=== PATIENT | male | born 1940 | race Caucasian/White ===

== ENCOUNTER 2017-07-14 13:07 | Emergency (ER) | payer MEDICARE ==
[~2017-07-14] VITALS: Ht 172.7 cm; Wt 100.0 kg
[~2017-07-14 13:07] MED LIST: ADLT ASA LOW81 MG PO; ADVAIR DISKU IN; ASA LO-DOSE81 MG OR; CARDURA4 MG PO; CRESTOR40 MG OR; DIOVAN40 MG OR; LASIX20 MG OR; LISINOPRIL10 MG PO; NORVASC2.5 MG PO; PREDNISONE20 MG PO; SYMBICORT1 AE1 IN; ZOCOR20 M1 PO; ZOCOR20 MG OR
[2017-07-14 13:52] LABS: HEMOGLOBIN 12.9 g/dl (14.0-18.0); IMMATURE GRANULOCYTES 0.3 % (0.0-1.0); MEAN CELL VOLUME 96.5 fL CALC (80.0-100.0); MEAN CORPUSCULAR HGB 31.9 pG CALC (26.0-32.0); MEAN CORPUSCULAR HGB CONC 33.1 g/L CALC (32.0-36.0); NEUT# 3.27 thou/uL (1.82-7.42); RED BLOOD COUNT 4.04 mill/uL (4.70-6.10); RED CELL DISTRI WIDTH 12.7 % (11.5-15.5)
[2017-07-14 14:15] LABS: ALBUMIN 4.6 g/dL (3.2-5.0); ALKALINE PHOSPHATASE 114 u/l (38-126); ANION GAP 18 (6-22 (CALC)); BILIRUBIN, TOTAL 0.4 mg/dL (0.0-1.4); BUN 18 mg/dL (8-23); BUN/CREATININE RATIO 18 (12-20 (CALC)); CARBON DIOXIDE 27 mmol/l (22-30); CHLORIDE 101 mmol/l (95-108); GFR > 60 ML/MIN (>=60 (CALC)); GFR FOR AFR.AMER. > 60 ML/MIN (>=60 (CALC)); GLUCOSE 112 mg/dL (82-115); POTASSIUM 4.6 mmol/l (3.5-5.1); SGOT/AST 24 u/l (19-48); SGPT/ALT 28 u/l (11-66); SODIUM 141 mmol/l (137-146); TOTAL PROTEIN 7.8 g/dL (6.3-8.2)
[2017-07-14 14:23] LABS: MYOGLOBIN 110 ng/mL (0 - 121)
[2017-07-14] MEDS ORDERED: CEPHALEXIN500 MG PO (14:40)
[2017-07-14] MEDS ORDERED: MEDDOSEPAK PO (14:40)
[2017-07-14 15:21] VITALS: BP 134/64
== END 2017-07-14 15:30 | disposition home or self-care (01) ==
LOC: ED 13:07
PROVIDERS: Emergency Medicine
DX: J44.1 Chronic obstructive pulmonary disease with (acute) exacerbation (principal); R50.9 Fever, unspecified; R06.02 Shortness of breath; R05 Cough; I10 Essential (primary) hypertension

== ENCOUNTER 2018-11-30 17:04 | Inpatient (IN) | payer MEDICARE ==
[2018-11-30] VITALS (8 sets, daily range): BP systolic 100–131; BP diastolic 62–79
[~2018-11-30] VITALS: Ht 172.7 cm; Wt 84.1 kg
[~2018-11-30 17:04] MED LIST changes: +CEPHALEXIN500 MG PO; +MEDDOSEPAK PO
[2018-11-30 17:50] LABS: HEMATOCRIT 38.3 % (39.0-50.0); HEMOGLOBIN 12.3 g/dl (14.0-18.0); IMMATURE GRANULOCYTES 0.5 % (0.0-5.0); MEAN CORPUSCULAR HGB 31.1 pG CALC (26.0-32.0); MEAN CORPUSCULAR HGB CONC 32.1 g/L CALC (32.0-36.0); NEUT# 4.48 thou/uL (1.82-7.42); RED BLOOD COUNT 3.95 mill/uL (4.70-6.10); RED CELL DISTRI WIDTH 13.2 % (11.5-15.5)
[2018-11-30 18:08] LABS: ALBUMIN 4.5 g/dL (3.2-5.0); ALKALINE PHOSPHATASE 170 u/l (38-126); BILIRUBIN, TOTAL 0.4 mg/dL (0.0-1.4); BUN 19 mg/dL (8-23); BUN/CREATININE RATIO 23 (12-20 (CALC)); CARBON DIOXIDE 28 mmol/l (22-30); CHLORIDE 101 mmol/l (95-108); CREATININE 0.8 mg/dL (0.7-1.3); GFR > 60 ML/MIN (>=60 (CALC)); GFR FOR AFR.AMER. > 60 ML/MIN (>=60 (CALC)); SGOT/AST 26 u/l (19-48); SODIUM 140 mmol/l (137-146)
[2018-11-30 18:12] LABS: ANION GAP 16 (6-22 (CALC)); POTASSIUM 5.4 mmol/l (3.5-5.1)
[2018-11-30 18:20] LABS: MYOGLOBIN 60 ng/mL (0 - 121)
[2018-11-30] MEDS ORDERED: ASPIRIN 8181 MG PO (18:28)
[2018-11-30] MEDS ORDERED: ZYLOPRIM100 MG PO (18:28)
[2018-11-30] MEDS ORDERED: ELIQUIS5 MG PO (18:29)
[2018-11-30] MEDS ORDERED: FUROSEMIDE20 MG PO (18:30)
[2018-11-30] MEDS ORDERED: IPRATROPIU0.5 MG/3 M IN (18:30)
[2018-11-30] MEDS ORDERED: MEVACOR40 MG PO (18:31)
[2018-11-30] MEDS ORDERED: METOPROL TAR25 MG PO (18:32)
[2018-11-30 22:44] LABS: URINE BILIRUBIN - DIPSTICK NEGATIVE (NEGATIVE); URINE BLOOD DIPSTICK MODERATE (NEGATIVE); URINE COLOR YELLOW; URINE GLUCOSE - DIPSTICK NEGATIVE (NEGATIVE); URINE KETONE NEGATIVE (NEGATIVE); URINE PROTEIN - DIPSTICK NEGATIVE (NEG-TRACE); URINE SPECIFIC GRAVITY 1.015; URINE UROBILINOGEN - DIPSTICK 0.2 E.U./dL (0.2)
[2018-11-30 22:48] LABS: URINE LEUK ESTERASE SMALL (NEGATIVE); URINE NITRITE - DIPSTICK POSITIVE (Negative)
[2018-11-30 23:19] LABS: URINE WBC 20-50 WBC/hpf (0-5)
[2018-11-30 23:20] LABS: URINE BACTERIA MANY hpf
[2018-12-01] VITALS (38 sets, daily range): BP systolic 95–144; BP diastolic 60–92
[2018-12-01 05:03] LABS: HEMATOCRIT 35.8 % (39.0-50.0); HEMOGLOBIN 11.5 g/dl (14.0-18.0); IMMATURE GRANULOCYTES 0.3 % (0.0-5.0); MEAN CELL VOLUME 96.8 fL CALC (80.0-100.0); MEAN CORPUSCULAR HGB 31.1 pG CALC (26.0-32.0); MEAN CORPUSCULAR HGB CONC 32.1 g/L CALC (32.0-36.0); NEUT# 3.69 thou/uL (1.82-7.42); RED BLOOD COUNT 3.7 mill/uL (4.70-6.10); RED CELL DISTRI WIDTH 13.2 % (11.5-15.5)
[2018-12-01 05:14] LABS: ALBUMIN 3.7 g/dL (3.2-5.0); ALKALINE PHOSPHATASE 149 u/l (38-126); BILIRUBIN, TOTAL 0.5 mg/dL (0.0-1.4); BUN 17 mg/dL (8-23); BUN/CREATININE RATIO 20 (12-20 (CALC)); CARBON DIOXIDE 31 mmol/l (22-30); CHLORIDE 104 mmol/l (95-108); CREATININE 0.8 mg/dL (0.7-1.3); GFR > 60 ML/MIN (>=60 (CALC)); GFR FOR AFR.AMER. > 60 ML/MIN (>=60 (CALC)); MAGNESIUM 1.9 mg/dL (1.6-2.3); SGOT/AST 21 u/l (19-48); SODIUM 141 mmol/l (137-146); TOTAL PROTEIN 6.7 g/dL (6.3-8.2)
[2018-12-01 05:17] LABS: ANION GAP 10 (6-22 (CALC)); POTASSIUM 4.3 mmol/l (3.5-5.1)
[2018-12-02] VITALS (18 sets, daily range): BP systolic 94–141; BP diastolic 64–96
[2018-12-02 05:17] LABS: HEMOGLOBIN 12.5 g/dl (14.0-18.0); IMMATURE GRANULOCYTES 0.3 % (0.0-5.0); MEAN CELL VOLUME 96.3 fL CALC (80.0-100.0); MEAN CORPUSCULAR HGB 30.9 pG CALC (26.0-32.0); MEAN CORPUSCULAR HGB CONC 32.1 g/L CALC (32.0-36.0); NEUT# 4.14 thou/uL (1.82-7.42); RED BLOOD COUNT 4.05 mill/uL (4.70-6.10); RED CELL DISTRI WIDTH 13.2 % (11.5-15.5)
[2018-12-02 05:30] LABS: ALBUMIN 4.2 g/dL (3.2-5.0); ALKALINE PHOSPHATASE 159 u/l (38-126); ANION GAP 15 (6-22 (CALC)); BILIRUBIN, TOTAL 0.6 mg/dL (0.0-1.4); BUN 17 mg/dL (8-23); BUN/CREATININE RATIO 19 (12-20 (CALC)); CARBON DIOXIDE 29 mmol/l (22-30); CHLORIDE 101 mmol/l (95-108); CREATININE 0.9 mg/dL (0.7-1.3); GFR > 60 ML/MIN (>=60 (CALC)); GFR FOR AFR.AMER. > 60 ML/MIN (>=60 (CALC)); MAGNESIUM 1.9 mg/dL (1.6-2.3); POTASSIUM 4.7 mmol/l (3.5-5.1); SGOT/AST 23 u/l (19-48); SODIUM 141 mmol/l (137-146); TOTAL PROTEIN 7.4 g/dL (6.3-8.2)
[2018-12-02 05:31] LABS: CHOLESTEROL HDL RATIO 2.7 (<4.4 (CALC))
[2018-12-03] VITALS (17 sets, daily range): BP systolic 95–133; BP diastolic 62–81
[2018-12-04 00:25] VITALS: BP 135/69
[2018-12-04 04:00] VITALS: BP 135/84
[2018-12-04 08:10] VITALS: BP 139/90
[2018-12-04 10:57] VITALS: BP 111/47
[2018-12-04] MEDS ORDERED: CEPHALEXIN500 MG PO (11:25)
[2018-12-04] MEDS ORDERED: LANOXIN PED0.1 MG/ML PO (11:28)
== END 2018-12-04 12:44 | disposition home or self-care (01) | DRG 309 ==
LOC: ED 17:04 → ED-I 18:45 → ED 18:52 → ICU 18:53 → MS2 12-03 12:34
PROVIDERS: Family Medicine; ADMIT Internal Medicine Nephrology; ATTEND Internal Medicine
DX: I48.91 Unspecified atrial fibrillation (principal); N39.0 Urinary tract infection, site not specified; I10 Essential (primary) hypertension; J44.9 Chronic obstructive pulmonary disease, unspecified; E78.5 Hyperlipidemia, unspecified; H91.90 Unspecified hearing loss, unspecified ear; K59.00 Constipation, unspecified; G47.00 Insomnia, unspecified; B96.20 Unspecified Escherichia coli [E. coli] as the cause of diseases classified elsewhere
CPT/HCPCS: J1160

== ENCOUNTER 2019-11-10 19:34 | Emergency (ER) | payer MEDICARE ==
[~2019-11-10 19:34] MED LIST changes: +ASPIRIN 8181 MG PO; +ELIQUIS5 MG PO; +FUROSEMIDE20 MG PO; +IPRATROPIU0.5 MG/3 M IN; +LANOXIN PED0.1 MG/ML PO; +METOPROL TAR25 MG PO; +MEVACOR40 MG PO; +ZYLOPRIM100 MG PO
[2019-11-10 19:40] VITALS: BP 127/80
[2019-11-10] MEDS ORDERED: ADVAIR DISK1 IN (20:01)
[2020-03-12] MEDS ORDERED: LYRICA100 MG PO (09:36)
[2020-03-13] MEDS ORDERED: LANOXIN62.5 MCG PO (10:02)
[2020-03-13] MEDS ORDERED: LISI20TA5 PO (10:03)
[2020-03-13] MEDS ORDERED: STOOL SOFTENER100 MG PO (10:04)
[2020-03-13] MEDS ORDERED: MULTI VITAMIN1 TAB PO (10:05)
== END 2019-11-10 20:15 | disposition home or self-care (01) ==
LOC: ED 19:34
DX: S51.011A Laceration without foreign body of right elbow, initial encounter (principal); I10 Essential (primary) hypertension; I48.91 Unspecified atrial fibrillation; J44.9 Chronic obstructive pulmonary disease, unspecified; W22.09XA Striking against other stationary object, initial encounter; Y93.E1 Activity, personal bathing and showering; Y92.002 Bathroom of unspecified non-institutional (private) residence as the place of occurrence of the external cause

== ENCOUNTER 2021-06-09 12:43 | Emergency (ER) | payer MEDICARE ==
[~2021-06-09] VITALS: Ht 172.7 cm; Wt 89.0 kg
[~2021-06-09 12:43] MED LIST changes: +ADVAIR DISK1 IN; +LANOXIN62.5 MCG PO; +LISI20TA5 PO; +LYRICA100 MG PO; +MULTI VITAMIN1 TAB PO; +STOOL SOFTENER100 MG PO
[2021-06-09 13:53] LABS: HEMATOCRIT 41.6 % (39.0-50.0); HEMOGLOBIN 13.9 g/dl (14.0-18.0); IMMATURE GRANULOCYTES 0.4 % (0.0-5.0); MEAN CELL VOLUME 95.6 fL CALC (80.0-100.0); MEAN CORPUSCULAR HGB CONC 33.4 g/dL CAL (32.0-36.0); NEUT# 18.53 thou/uL (1.82-7.42); RED BLOOD COUNT 4.35 mill/uL (4.70-6.10); RED CELL DISTRI WIDTH 12.8 % (11.5-15.5)
[2021-06-09 14:08] LABS: ALBUMIN 4.4 g/dL (3.2-5.0); BILIRUBIN, TOTAL 1.1 mg/dL (0.0-1.4); CREATININE 1.5 mg/dL (0.7-1.3); POTASSIUM 4.5 mmol/l (3.5-5.1); TOTAL PROTEIN 8.3 g/dL (6.3-8.2)
[2021-06-09 14:55] LABS: URINE BILIRUBIN - DIPSTICK NEGATIVE (NEGATIVE); URINE BLOOD DIPSTICK MODERATE (NEGATIVE); URINE COLOR YELLOW; URINE GLUCOSE - DIPSTICK NEGATIVE (NEGATIVE); URINE KETONE NEGATIVE (NEGATIVE); URINE LEUK ESTERASE NEGATIVE (NEGATIVE); URINE PROTEIN - DIPSTICK NEGATIVE (NEG-TRACE); URINE UROBILINOGEN - DIPSTICK 0.2 E.U./dL (0.2)
[2021-06-09 14:56] LABS: URINE NITRITE - DIPSTICK NEGATIVE (Negative)
[2021-06-09 15:07] LABS: URINE SQUAMOUS EPITHELIAL CELL MODERATE EPI/hpf (0-FEW); URINE WBC 0-2 WBC/hpf (0-5)
[2021-06-09] MEDS ORDERED: CEPHALEXIN500 MG PO (16:48)
[2021-06-09 17:00] VITALS: BP 114/53
== END 2021-06-09 17:00 | disposition home or self-care (01) ==
LOC: ED 12:43
PROVIDERS: Emergency Medicine
DX: R41.82 Altered mental status, unspecified (principal); J44.1 Chronic obstructive pulmonary disease with (acute) exacerbation; D72.829 Elevated white blood cell count, unspecified; T38.0X5A Adverse effect of glucocorticoids and synthetic analogues, initial encounter; I10 Essential (primary) hypertension; I48.91 Unspecified atrial fibrillation; Z79.52 Long term (current) use of systemic steroids; Z95.0 Presence of cardiac pacemaker

== ENCOUNTER 2021-07-18 07:07 | Day surgery (SDC) | payer MEDICARE ==
[2021-07-18] MEDS ORDERED: METOPROLOL100 M1 PO (07:40)
[2021-07-18 11:27] VITALS: BP 110/78
== END 2021-07-18 10:53 | disposition home or self-care (01) ==
LOC: ORM 07:07
PROVIDERS: ATTEND Urology
PROC: 0VB08ZZ Excision of Prostate, Via Natural or Artificial Opening Endoscopic (ICD-10-PCS; principal; 2021-07-18)
DX: N40.1 Benign prostatic hyperplasia with lower urinary tract symptoms (principal); N13.8 Other obstructive and reflux uropathy; R33.8 Other retention of urine; E78.2 Mixed hyperlipidemia; I10 Essential (primary) hypertension; I48.91 Unspecified atrial fibrillation; J44.9 Chronic obstructive pulmonary disease, unspecified; M10.9 Gout, unspecified; Z87.440 Personal history of urinary (tract) infections; Z87.891 Personal history of nicotine dependence; Z95.0 Presence of cardiac pacemaker; T83.83XA Hemorrhage due to genitourinary prosthetic devices, implants and grafts, initial encounter; Y84.6 Urinary catheterization as the cause of abnormal reaction of the patient, or of later complication, without mention of misadventure at the time of the procedure; Z98.890 Other specified postprocedural states
CPT/HCPCS: J0131

== ENCOUNTER 2021-07-28 08:35 | Emergency (ER) | payer MEDICARE ==
[~2021-07-28] VITALS: Ht 172.7 cm; Wt 85.0 kg
[~2021-07-28 08:35] MED LIST changes: +METOPROLOL100 M1 PO
[2021-07-28 09:13] LABS: URINE BILIRUBIN - DIPSTICK NEGATIVE (NEGATIVE); URINE BLOOD DIPSTICK LARGE (NEGATIVE); URINE COLOR RED; URINE GLUCOSE - DIPSTICK NEGATIVE (NEGATIVE); URINE KETONE TRACE mg/dL (NEGATIVE); URINE LEUK ESTERASE NEGATIVE (NEGATIVE); URINE NITRITE - DIPSTICK POSITIVE (Negative); URINE PROTEIN - DIPSTICK 100 mg/dL (NEG-TRACE); URINE SPECIFIC GRAVITY 1.015
[2021-07-28 09:14] LABS: URINE RBC TNTC RBC/hpf (0-5)
[2021-07-28 09:26] LABS: HEMATOCRIT 41.6 % (39.0-50.0); HEMOGLOBIN 13.2 g/dl (14.0-18.0); IMMATURE GRANULOCYTES 0.1 % (0.0-5.0); MEAN CORPUSCULAR HGB 31.4 pG CALC (26.0-32.0); MEAN CORPUSCULAR HGB CONC 31.7 g/dL CAL (32.0-36.0); NEUT# 5.84 thou/uL (1.82-7.42); RED BLOOD COUNT 4.2 mill/uL (4.70-6.10)
[2021-07-28 09:37] LABS: INTERNATIONAL NORMALIZED RATIO 1.1 RATIO (0.7-1.3); PROTHROMBIN TIME 11.5 SECONDS (9.0-12.5)
[2021-07-28 09:40] LABS: ALBUMIN 4.2 g/dL (3.2-5.0); ALKALINE PHOSPHATASE 106 u/l (38-126); ANION GAP 13 (6-22 (CALC)); BILIRUBIN, TOTAL 0.5 mg/dL (0.0-1.4); BUN 18 mg/dL (8-23); BUN/CREATININE RATIO 17 (12-20 (CALC)); CARBON DIOXIDE 30 mmol/l (22-30); CHLORIDE 99 mmol/l (95-108); GFR > 60 ML/MIN (>=60 (CALC)); GFR FOR AFR.AMER. > 60 ML/MIN (>=60 (CALC)); POTASSIUM 4.5 mmol/l (3.5-5.1); SGOT/AST 31 u/l (19-48); SODIUM 138 mmol/l (137-146); TOTAL PROTEIN 8.2 g/dL (6.3-8.2)
[2021-07-28 11:13] VITALS: BP 151/91
[2021-07-28] MEDS ORDERED: OMNI-PAC300 MG PO ×2 (11:18→11:19)
[2021-07-28] MEDS ORDERED: TAMSULOSIN0.4 MG PO ×2 (11:18→11:19)
== END 2021-07-28 11:45 | disposition home or self-care (01) ==
LOC: ED 08:35
PROVIDERS: Family Medicine
PROC: 0T9B70Z Drainage of Bladder with Drainage Device, Via Natural or Artificial Opening (ICD-10-PCS; principal; 2021-07-28)
DX: R33.9 Retention of urine, unspecified (principal); N39.0 Urinary tract infection, site not specified; I48.91 Unspecified atrial fibrillation; I10 Essential (primary) hypertension; J44.9 Chronic obstructive pulmonary disease, unspecified; Z98.890 Other specified postprocedural states; Z20.822 Contact with and (suspected) exposure to COVID-19

== ENCOUNTER 2021-08-01 01:20 | Emergency (ER) | payer MEDICARE ==
[~2021-08-01] VITALS: Ht 172.7 cm; Wt 85.0 kg
[~2021-08-01 01:20] MED LIST changes: +OMNI-PAC300 MG PO; +TAMSULOSIN0.4 MG PO
[2021-08-01 02:23] VITALS: BP 155/105
== END 2021-08-01 02:29 | disposition home or self-care (01) ==
LOC: ED 01:20
PROC: 0T9B70Z Drainage of Bladder with Drainage Device, Via Natural or Artificial Opening (ICD-10-PCS; principal; 2021-08-01)
DX: R33.9 Retention of urine, unspecified (principal); I10 Essential (primary) hypertension; J44.9 Chronic obstructive pulmonary disease, unspecified; I48.91 Unspecified atrial fibrillation; Z95.0 Presence of cardiac pacemaker; Z98.890 Other specified postprocedural states

== ENCOUNTER 2021-12-30 15:54 | Inpatient (IN) | payer MEDICARE ==
[2021-12-30] VITALS (25 sets, daily range): BP systolic 94–142; BP diastolic 61–90
[~2021-12-30] VITALS: Ht 172.7 cm; Wt 84.6 kg
--- NOTE | 2021-12-30 15:54 | NUR ---
PT AMBULATES TO ROOM 14 FOR EVAL OF CHEST CONGESTION, CHEST PRESSURE AND BACK PAIN SINCE LAST NIGHT
--- NOTE | 2021-12-30 16:35 | NUR ---
PATIENT REPORTS HAVING CHEST PAIN AND MILD SOB STARTING YESTERDAY. LUNG SOUNDS CLEAR BILATERALLY. NOTED TO BE A FIB RVR ON MONITOR. AT BEDSIDE
[2021-12-30 17:09] LABS: HEMATOCRIT 38.6 % (39.0-50.0); HEMOGLOBIN 12.6 g/dl (14.0-18.0); IMMATURE GRANULOCYTES 0.4 % (0.0-5.0); MEAN CELL VOLUME 95.5 fL CALC (80.0-100.0); MEAN CORPUSCULAR HGB 31.2 pG CALC (26.0-32.0); MEAN CORPUSCULAR HGB CONC 32.6 g/dL CAL (32.0-36.0); NEUT# 5.6 thou/uL (1.82-7.42); RED BLOOD COUNT 4.04 mill/uL (4.70-6.10); RED CELL DISTRI WIDTH 13.5 % (11.5-15.5)
--- NOTE | 2021-12-30 17:20 | NUR ---
PATIENT RESTING ON STRETCHER, NO SIGNS OF DISTRESS NOTED. AT BEDSIDE.
[2021-12-30 17:24] LABS: ALBUMIN 4.2 g/dL (3.2-5.0); ALKALINE PHOSPHATASE 80 u/l (38-126); ANION GAP 14 (6-22 (CALC)); BILIRUBIN, TOTAL 0.7 mg/dL (0.0-1.4); BUN 37 mg/dL (8-23); BUN/CREATININE RATIO 28 (12-20 (CALC)); CARBON DIOXIDE 28 mmol/l (22-30); CHLORIDE 95 mmol/l (95-108); CREATININE 1.3 mg/dL (0.7-1.3); GFR FOR AFR.AMER. > 60 ML/MIN (>=60 (CALC)); GFR OTHER RACES 53 ML/MIN (>=60 (CALC)); POTASSIUM 4.1 mmol/l (3.5-5.1); SGOT/AST 21 u/l (19-48); SODIUM 132 mmol/l (137-146); TOTAL PROTEIN 7.8 g/dL (6.3-8.2)
[2021-12-30 17:36] LABS: MYOGLOBIN 120 ng/mL (0 - 121)
--- NOTE | 2021-12-30 18:09 | NUR ---
PATIENT NOTED TO HAVE INCREASED HR DURING CHANGE IN POSITION FROM LAYING TO STANDING. PATIENT GIVEN WARM BLANKET AND SOCK APPLIED.
--- NOTE | 2021-12-30 18:45 | NUR ---
PATIENT TO MED SURG VIA STRETCHER WITH TELE AND O2 IN PLACE. BEDSIDE REPORT GIVEN TO PATITO SINGLETON. CARE RELINQUISHED.
--- NOTE | 2021-12-30 19:30 | NUR ---
PATIENT RESTING IN BED. NO DISTRESS NOTED. NO COMPLAINTS AT THIS TIME. FALL PRECAUTION AND CALL CHOW USE EDUCATION PROVIDED. CALL CHOW WITHIN REACH.
[2021-12-31] VITALS (52 sets, daily range): BP systolic 100–141; BP diastolic 55–102
--- NOTE | 2021-12-31 00:15 | NUR ---
PATIENT SLEEPING AT THIS TIME. NO DISTRESS NOTED. FALL PRECAUTIONS IN PLACE. CALL CHOW WITHIN REACH.
--- NOTE | 2021-12-31 04:45 | NUR ---
ASSISTED PATIENT TO BATHROOM AND BACK TO BED. NO DISTRESS NOTED. PATIENT HR INCREASED TO >140 DURING AMBULATION PER ED TELEMONITORING. PATIENT HAD NO SYMPTOMS AND NO DISTRESS NOTED AT TIME OF AMBULATION. FALL PRECAUTIONS IN PLACE. CALL CHOW WITHIN REACH.
[2021-12-31 05:23] LABS: HEMATOCRIT 37.4 % (39.0-50.0); HEMOGLOBIN 12.6 g/dl (14.0-18.0); MEAN CELL VOLUME 92.8 fL CALC (80.0-100.0); MEAN CORPUSCULAR HGB 31.3 pG CALC (26.0-32.0); MEAN CORPUSCULAR HGB CONC 33.7 g/dL CAL (32.0-36.0); RED BLOOD COUNT 4.03 mill/uL (4.70-6.10); RED CELL DISTRI WIDTH 13.2 % (11.5-15.5)
[2021-12-31 05:35] LABS: ANION GAP 14 (6-22 (CALC)); BUN 34 mg/dL (8-23); BUN/CREATININE RATIO 34 (12-20 (CALC)); CARBON DIOXIDE 27 mmol/l (22-30); CHLORIDE 99 mmol/l (95-108); GFR FOR AFR.AMER. > 60 ML/MIN (>=60 (CALC)); GFR OTHER RACES > 60 ML/MIN (>=60 (CALC)); MAGNESIUM 2.1 mg/dL (1.6-2.3); POTASSIUM 4.9 mmol/l (3.5-5.1); SODIUM 135 mmol/l (137-146)
--- NOTE | 2021-12-31 07:36 | NUR ---
Patient is screened for intervention and may benefit from PT consult if medical agrees
--- NOTE | 2021-12-31 08:00 | NUR ---
GOT REPORT FROM RAILROAD CONSTRUCTION DIRECTOR NURSE. PATIENT ASSESSED. PATIENT HEART RATE IN THE 160'S, VITALS TAKEN. MD MADE AWARE OF FINDINGS. MD ORDERED X1 DOSE OF LOPRESSOR. MEDICATION GIVEN. AT 0836 PATIENT HEART RATE STILL IN THE 130'S. MD MADE AWARE. MD ORDERED FLUIDS AND ANOTHER X1 DOSE OF LOPRESSOR. MEDICATION GIVEN. PATIENT IS AOX3. NO SXS OF DISTRESS. CALL LIGHT AND BEDSIDE TABLE WITH IN REACH OF PATIENT. ADVISED TO CALL IF HE NEEDS ANYTHING. PATIENT VERBALIZED UNDERSTANDING.
--- NOTE | 2021-12-31 12:16 | NUR ---
PATIENT MAINTAINING HR IN THE 150'S, PATIENT IS STILL ASYMPTOMATIC. PER MD TRANSFER PATIENT TO ICU FOR DRIP. SEE ORDERS. PATIENT INFORMED AND TRANSFERED. SPOUSE CALLED AND INFORMED. NO FURTHER QUESTIONS AT THIS TIME.
--- NOTE | 2021-12-31 12:52 | NUR ---
Pt to unit from M/S at 1200, settled into bed and monitoring leads applied, pt in A-fib with BBB, A/O, denies any pain or SOB, he is on RA with sats mid 90's, lungs clear/dim, abd distended with active BS, +1 edema to bilat LE, discoloration noted to RLE, pulses normal with cap refill <3 sec x 4 ext, neuro intact and normal strength
--- NOTE | 2021-12-31 18:36 | NUR ---
pt sitting up in bed, ate entire dinner, denies needs/pain at this time, cardizem gtt titrated down to 7.5 mg/hr at this time from high of 15 mg/hr, pt with frequent PVC's, HR predominately in 80's
--- NOTE | 2021-12-31 19:15 | NUR ---
RECIEVED REPORT AND WALKING ROUND FROM DI DOCKERY PT WAS LAYING FOWLERS IN BED, VITALS STABLE. PT ALERT AND ORIENTED X3. PT STATED "HARD OF HEARING" RIGHT LEG ASSESED, APPEARED LARGER THEN LEFT IN DIAMETER, SCALY AND DRY, WITH SOME DARK DISCOLORATION. PT DENIED ANY PAIN. NO RESPIRATORY DISTRESS. URINE SPECIMEN OBTAINED. PT TOLERATED ACTIVITY WELL.
[2021-12-31 19:57] LABS: URINE BILIRUBIN - DIPSTICK NEGATIVE (NEGATIVE); URINE BLOOD DIPSTICK MODERATE (NEGATIVE); URINE COLOR YELLOW; URINE GLUCOSE - DIPSTICK NEGATIVE (NEGATIVE); URINE KETONE NEGATIVE (NEGATIVE); URINE LEUK ESTERASE NEGATIVE (NEGATIVE); URINE PH 5.5 (4.5-8.0); URINE PROTEIN - DIPSTICK NEGATIVE (NEG-TRACE); URINE SPECIFIC GRAVITY 1.015; URINE UROBILINOGEN - DIPSTICK 0.2 E.U./dL (0.2)
[2021-12-31 20:01] LABS: URINE NITRITE - DIPSTICK NEGATIVE (Negative); URINE WBC 0-2 WBC/hpf (0-5)
--- NOTE | 2021-12-31 21:25 | NUR ---
RESTING QUIETLY IN BED RELAXED POSTURE CARDIZEM DRIP AT 5 MG/HR HR 86 REMAIN IN AFIB BP 108/55. RESPIRATIONS EVEN AND UNLABORED.
--- NOTE | 2021-12-31 21:33 | NUR ---
ASSISTED PATIENT TO STAND AT BEDSIDE TO VOID. TOLERATED WELL URINE YELLOW AND CLEAR
--- NOTE | 2021-12-31 23:14 | NUR ---
RESTING QUIETLY IN BED . LADLE MECHANIC SHOWS 100% PACED RHYTHM. UNDERLYING RHYTHM AFIB HR 70 BPM BP 106/71 RESPIRATIONS EVEN AND UNLABORED.
[2022-01-01] VITALS (85 sets, daily range): BP systolic 80–149; BP diastolic 39–103
--- NOTE | 2022-01-01 01:58 | NUR ---
AWAKE ALERT AND ORIENTED X 4 WARM BLANKET PROVIDED FOR COMFORT. HR 73 PACED RHYTHM BP 119/76 CARDIZEM DRIM TITRATEDTO 2.5 MG/HR
--- NOTE | 2022-01-01 04:27 | NUR ---
RESTING QUIETLY IN BED AWAKE WATCHING TV RESPIRATIONS EVEN AND UNLABORED. HR 71 BP 108/70 CARDIZEM DRIP AT 2.5 MG/ML
[2022-01-01 05:07] LABS: ANION GAP 10 (6-22 (CALC)); BUN 32 mg/dL (8-23); BUN/CREATININE RATIO 42 (12-20 (CALC)); CARBON DIOXIDE 29 mmol/l (22-30); CHLORIDE 100 mmol/l (95-108); CREATININE 0.8 mg/dL (0.7-1.3); GFR FOR AFR.AMER. > 60 ML/MIN (>=60 (CALC)); GFR OTHER RACES > 60 ML/MIN (>=60 (CALC)); MAGNESIUM 2.3 mg/dL (1.6-2.3); POTASSIUM 4.8 mmol/l (3.5-5.1); SODIUM 134 mmol/l (137-146)
[2022-01-01 05:12] LABS: HEMATOCRIT 36.7 % (39.0-50.0); HEMOGLOBIN 12.4 g/dl (14.0-18.0); MEAN CELL VOLUME 93.4 fL CALC (80.0-100.0); MEAN CORPUSCULAR HGB 31.6 pG CALC (26.0-32.0); MEAN CORPUSCULAR HGB CONC 33.8 g/dL CAL (32.0-36.0); RED BLOOD COUNT 3.93 mill/uL (4.70-6.10); RED CELL DISTRI WIDTH 13.4 % (11.5-15.5)
--- NOTE | 2022-01-01 06:02 | NUR ---
LYING IN BED RELAXED POSTURE DISASSEMBLER PRODUCT SHOWS VENTICULAR PACED RYHTHM NO SOB NOTED HR 77 BP 116/79
--- NOTE | 2022-01-01 09:00 | NUR ---
CARDIZEM GTT STOPPED AT 0740, PT THEN SAT UP FOR BREAKFAST AND HR UP TO 110'S - 120'S, AM MEDS GIVEN AND HR BACK DOWN, HE DENIES ANY CP OR SOB
--- NOTE | 2022-01-01 16:08 | NUR ---
Patient is screened for PT intervention and at this poit, is still struggling with A fib and RVR with rate in the 140s - we will defer until the AM
--- NOTE | 2022-01-01 16:11 | NUR ---
PT CARDIZEM GTT RESTARTED AFTER HE WAS UP TO BSC AND HR WENT UP TO 160'S, DR RODRÍGUEZ NOTIFIED, PHYSICAL THERAPY TO [facility] TOMORROW
--- NOTE | 2022-01-01 18:48 | NUR ---
PT CONTINUES WITH MEG SHI, AO, UP TO BEDSIDE TO USE URINAL WITH STEADY GAIT, NEW ORDERS FOR PO MEDS TO BEGIN TONIGHT
--- NOTE | 2022-01-01 18:50 | NUR ---
BEDSIDE REPORT RECEIVED FROM Danya COBB RN. CARE OF PT ASSUMED AT THIS TIME. DINNER TRAY REMOVED. PT CONSUMED APPROX 75% OF MEAL. 500 ML CLEAR YELLOW URINE EMPTIED FROM URINAL. PT DENIES FURTHER NEEDS AT THIS TIME. CALL CHOW WITHIN REACH. AGREES TO CALL PRN.
--- NOTE | 2022-01-01 19:23 | NUR ---
FACTORY ENGINEER IN ROOM SPEAKING WITH PT AT BEDSIDE REGARDING NEBULIZER SCHEDULE.
--- NOTE | 2022-01-01 19:45 | NUR ---
SNACK OF PEANUT BUTTER CHEESE CRACKERS AND CAN OF COLA PROVIDED PER PTS REQUEST.DENIES FURTHER NEEDS AT THIS TIME. CALL CHOW REMAINS WITHIN REACH, AGREES TO CALL PRN. SLIDING GLASS DOOR SHUT PER PTS REQUEST.
--- NOTE | 2022-01-01 20:00 | NUR ---
PT COMPLETES 100% OF PROVIDED HS SNACK. DECLINES OFFER FOR BLANKET. STATES "IM GOOD NOW, I MAY NEED ONE LATER, I'LL CALL YOU. DENIES FURTHER NEEDS AT THIS TIME. CALL CLAUDINE REMAINS WITHIN REACH, AGREES TO CALL PRN.
--- NOTE | 2022-01-01 21:00 | NUR ---
PO MEDICATIONS ADMINISTERED, SEE E-MAR. CARDIZEM GTT DECREASED FROM 10MG/H TO 5MG/H AT THIS TIME. NIBP 90/56mmHg (65) HR AFIB 70'S AND 80'S. PT RESTING IN BED WITH TV ON. DENIES FURTHER NEEDS AT THIS TIME. CALL CHOW REMAINS WITHIN REACH, AGREES TO CALL PRN.
--- NOTE | 2022-01-01 21:30 | NUR ---
CARDIZEM GTT TURNED OFF AT THIS TIME. NIBP 80/52mmHg, HR AFIB 70'S AND 80'S. NIBP MONITORING FREQUENCY INCREASED TO EVERY 5 MINUTES. PT APPEARS TO BE SLEEPING COMFORTABLY. LAYING ON HIS SIDE. RESPIRATIONS REGULAR AND UNLABORED. SPO2 94% ON RA. NO APPARENT DISTRESS. CALL CHOW REMAINS WITHIN REACH.
--- NOTE | 2022-01-01 22:09 | NUR ---
PT WOKEN FOR RE-ASSESMENT. PT WAKES EASILY. NO DISTRESS OR DISCOMFORT. ASKS ABOUT HR. UPDATES PROVIDED REGARDING VS. REQUESTED PT POSITION FLAT ON HIS BACK TO TAKE NIBP. PT REPOSITIONS NIBP 96/59mmHg. HR 70-80'S AFIB. PT DENIES NEEDS AT THIS TIME. CALL CHOW REMAINS WITHIN REACH, AGREES TO CALL PRN.
--- NOTE | 2022-01-01 22:20 | NUR ---
NIBP 101/61, AFIB 70-80'S WITH PACER. NIBP FREQUENCY INCREASED TO Q 15 MINUTES.
--- NOTE | 2022-01-01 23:35 | NUR ---
PT IS NOTED TO HAVE SHORT INTERMITENT PERIODS OF SPO2 DESATURATION DURING SLEEP. SEE VS RECORD. 02 AT 2L/MIN VIA NC APPLIED TO PT. SPO2 97-98%. CONSULTED WITH PAPER NOVELTY MAKER. AGREES WITH INTERVENTION. NO FURTHER RECOMMENDATION RECEIVED.
[2022-01-02] VITALS (33 sets, daily range): BP systolic 97–136; BP diastolic 55–96
--- NOTE | 2022-01-02 | NUR ---
PT SLEEPING, APPEARS COMFORTABLE AND IN NO DISTRESS. RESPIRATIONS REGULAR AND UNLAABORED. NIBP 127/79mmHg, MAP 95, TEMP 97.2, RR 16, SPO2 97% ON 2L/MIN VIA NC, HR 70'S-80'S AFIB. NIBP MONITORING INCREASED TO Q 30 MINUTES. CALL CHOW REMAINS WITHIN REACH.
--- NOTE | 2022-01-02 00:13 | NUR ---
BODY RECALL INSTRUCTOR ARRIVES TO ASSESS PT, RECCOMENDS MAINTAINING 02 @ 2L/MIN VIA NC, NO FURTHER RECOMMENDATION.
--- NOTE | 2022-01-02 02:37 | NUR ---
ASSISTED PT TO STAND TO USE URINAL. 500ML CLEAR YELLOW URINE EMPTIED FROM URINAL. FRESH WATER WITH NO ICE PROVIDED PER PT'S REQUEST. PT REMOVED 02 WHILE STANDING AND SP02 DECREASED TO 87-89%. PT EXPERIENCED MOMENTARY SOB THAT IMPROVED QUICKLY WHEN HE LAYED BACK DOWN AND REAPPLIED 02. AFIB INCREASED TO 120S WITH STANDING AND RETURNED TO 80S SHORTLY AFTER RETURNING TO BED.
--- NOTE | 2022-01-02 04:28 | NUR ---
PT APPEARS TO BE SLEEPING COMFORTABLY. EYES CLOSED. RESPIRATIONS REGULAR AND UNLABORED. SP02 98% ON 02 @ 2L/M VIA NC. AFIB 80-90'S. RR 17. NIBP 113/72mmHg. TEMP 97.6. CALL CHOW REMAINS WITHIN REACH.
--- NOTE | 2022-01-02 05:26 | NUR ---
Dashawn MANCIA CPT IN ROOM COLLECTING AM LABS. BEDSCALE WEIGHT THIS AM 84.6KG.
[2022-01-02 06:01] LABS: ANION GAP 9 (6-22 (CALC)); BUN 34 mg/dL (8-23); BUN/CREATININE RATIO 38 (12-20 (CALC)); CARBON DIOXIDE 31 mmol/l (22-30); CHLORIDE 101 mmol/l (95-108); CREATININE 0.9 mg/dL (0.7-1.3); GFR FOR AFR.AMER. > 60 ML/MIN (>=60 (CALC)); GFR OTHER RACES > 60 ML/MIN (>=60 (CALC)); MAGNESIUM 2.2 mg/dL (1.6-2.3); POTASSIUM 4.3 mmol/l (3.5-5.1); SODIUM 136 mmol/l (137-146)
[2022-01-02 06:10] LABS: HEMATOCRIT 36.1 % (39.0-50.0); HEMOGLOBIN 12.2 g/dl (14.0-18.0); MEAN CELL VOLUME 94.3 fL CALC (80.0-100.0); MEAN CORPUSCULAR HGB 31.9 pG CALC (26.0-32.0); MEAN CORPUSCULAR HGB CONC 33.8 g/dL CAL (32.0-36.0); RED BLOOD COUNT 3.83 mill/uL (4.70-6.10); RED CELL DISTRI WIDTH 13.4 % (11.5-15.5)
--- NOTE | 2022-01-02 06:28 | NUR ---
AM LAB RESULTS REVIEWED.
--- NOTE | 2022-01-02 07:04 | NUR ---
BEDSIDE REPORT GIVEN TO Devan STATON. NIBP 123/75mmHg. AFIB 80-90S. RR 14. SPO2 99% ON 02 AT 2L/MIN VIA NC. PT DENIES NEEDS AT THIS TIME. CALL CHOW REMAINS WITHIN REACH, AGREES TO CALL PRN.
--- NOTE | 2022-01-02 07:31 | NUR ---
PT A&O THIS AM. SKIN WARM AND DRY. IV SITES LH AND RAC HEALTHY. SALINE LOCKED. PT REPORTS FEELING SOB W/REPOSITIONING. RESP EVEN/UNLABORED. CURRENTLY ON O2 AT 2L/M VIA NC. SATS 97%. O2 REMOVED PER PT REQUEST. ASSESSMENT COMPLETED. SATS 96 RA. CAP REFILL BRISK. LUNGS CTA DIMINISHED. CONTROLLED AFIB 90'S. CARDIZEM DRIP STOPPED LAST NOC AT 2130 PER AM REPORT.
--- NOTE | 2022-01-02 08:48 | NUR ---
PATIENT SITTING AT BEDSIDE HR138 AFIB. CARDIZEM DRIP RESTARTED. PATIENT VOIDED 500ML CLEAR YELLOW URINE
--- NOTE | 2022-01-02 10:43 | NUR ---
PATIENT RESSTIG CARDIZEM DRIP CONTINUES RATE 118 AFIB. PATIENT VOICES NO CONCERNS OR PAIN AT THIS TIME WILL CONTINUE TO MONITOR
--- NOTE | 2022-01-02 11:14 | NUR ---
Patient back on cardizem for high HR- not appropriate at this time for PT eval
--- NOTE | 2022-01-02 11:43 | NUR ---
pt up to bedside commode tolerate well. cardizem drip continues rate afib 116
--- NOTE | 2022-01-02 12:00 | NUR ---
ASSISTED TO BEDSIDE COMMODE. USES URINAL. TOLERATED WELL RETURNED TO BED.
--- NOTE | 2022-01-02 12:53 | NUR ---
RT AT BEDSIDE FOR NEB TX. PT ADVISED.
--- NOTE | 2022-01-02 16:00 | NUR ---
BP 102/58 HR 80 CARDIZEM DRIP STOP AT THIS TIME. WILL RESUME PER PROTOCOL.
--- NOTE | 2022-01-02 18:27 | NUR ---
CARDIZEM DRIP RESTARTED HRR AFIB 120'S. UP AT BEDSIDE EATING PM MEAL. ASYMPTOMATIC.
--- NOTE | 2022-01-02 19:05 | NUR ---
PT ASSISSTED TO BSC. PT HAD LARGE SOFT BM. PT ASSISSTED BACK TO BED. VSS ON RA, CARDIZEM GTT INFUSING AT 5 MG/HR. FAMILY AT BEDSIDE.
--- NOTE | 2022-01-02 22:33 | NUR ---
PT DESAT WHILE SLEEPING. O2 DROPPED TO 76% ON RA. PT AWOKEN TO SEE HOW HE IS FEEELING. 2 L/MIN N/C APPLIED. O2 RETURNED TO 97%.
[2022-01-03] VITALS (33 sets, daily range): BP systolic 91–129; BP diastolic 45–74
--- NOTE | 2022-01-03 00:10 | NUR ---
ROUNDING COMPLETE. PT APPEARS TO BE RESTING COMFORTABLY. VSS ON 2 L/MIN N/C, O2 98%, BP 101/56 (71), HR 77 A FIB W/ SOME PACED BEATS. CARDIZEM INFUSING AT 5 MG/HR. SAFETY PRECAUTIONS MAINTAINED.
--- NOTE | 2022-01-03 02:25 | NUR ---
ROUNDING COMPLETE. PT APPEARS TO BE RESTING COMFORTABLY. VSS ON 2 L/MIN, O2 99%, HR 72 AFIB W/ SOME V PACED BEATS, BP 113/65. CARDIZEM INFUSING AT 5 MG/HR. SAFETY PRECAUTIONS MAINTAINED.
--- NOTE | 2022-01-03 04:17 | NUR ---
ROUNDING COMPLETE. PT APPEARS TO BE RESTING COMFORTABLY. VSS ON 2 L/MIN N/C, O2 99%, HR 70 AFIB W/ SOME V PACED BEATS, CARDIZEM INFUSING AT 5 MG/HR. SAFETY PRECAUTIONS MAINTAINED.
[2022-01-03 05:39] LABS: HEMATOCRIT 38.3 % (39.0-50.0); HEMOGLOBIN 12.9 g/dl (14.0-18.0); MEAN CELL VOLUME 94.6 fL CALC (80.0-100.0); MEAN CORPUSCULAR HGB 31.9 pG CALC (26.0-32.0); MEAN CORPUSCULAR HGB CONC 33.7 g/dL CAL (32.0-36.0); RED BLOOD COUNT 4.05 mill/uL (4.70-6.10); RED CELL DISTRI WIDTH 13.4 % (11.5-15.5)
[2022-01-03 06:02] LABS: ANION GAP 7 (6-22 (CALC)); BUN 28 mg/dL (8-23); BUN/CREATININE RATIO 35 (12-20 (CALC)); CARBON DIOXIDE 32 mmol/l (22-30); CHLORIDE 100 mmol/l (95-108); CREATININE 0.8 mg/dL (0.7-1.3); GFR FOR AFR.AMER. > 60 ML/MIN (>=60 (CALC)); GFR OTHER RACES > 60 ML/MIN (>=60 (CALC)); MAGNESIUM 2.2 mg/dL (1.6-2.3); POTASSIUM 4.3 mmol/l (3.5-5.1); SODIUM 135 mmol/l (137-146)
--- NOTE | 2022-01-03 07:10 | NUR ---
pt awake in bed; no apparent distress noted; pt offers no complaints; assessment completed at this time; pt alert and oriented; denies pain; no n/v noted; resp even and unlabored; lungs clear/ faint exp wheezing noted; skin color wnl; o2 per nc, removed at pt request; head of operation and logistics cough noted; hr irreg; strong pulses; trace edema noted; afib with occ paced beats on monitor; abd soft with bs present; no bm noted per typewriter assembly and parts inspector; assisted to void clear yellow urine; urinal at bedside; #18 saline locked to rac; #20 to lh flushed and patent with cardizem gtt infusing at 5mg/hr; no redness or edema noted at site; discoloration noted to rle; plan of care/ am meds explained; pt assisted to recliner at this time; call light within reach; will continue to monitor
--- NOTE | 2022-01-03 08:18 | NUR ---
awake in recliner eating breakfast; offers no complaints; iv intact; cardizrm gtt at 5mg/hr; afib on monitor; will continue to monitor
--- NOTE | 2022-01-03 09:53 | NUR ---
Dr Sherwood present at bedside to assess pt and discuss plan of care
[2022-01-03 10:18] LABS: ALBUMIN 3.5 g/dL (3.2-5.0); BILIRUBIN, TOTAL 0.6 mg/dL (0.0-1.4); TOTAL PROTEIN 6.4 g/dL (6.3-8.2)
--- NOTE | 2022-01-03 12:10 | NUR ---
pt awake sitting on the side of the bed eating lunch; no apparent distress noted; iv intact and patent; cardizem gtt at 5mg/hr; afib on monitor; call light within reach; will continue to monitor
--- NOTE | 2022-01-03 13:15 | NUR ---
afib with controlled rate; cardizem placed on hold
--- NOTE | 2022-01-03 14:05 | NUR ---
pt resting in bed with eyes closed; no apparent distress noted; o2 sat noted in the 80s while asleep; o2 placed at 2L nc; pt quickly recovers to upper 90s when awakened; pt denies needs; afib on monitor; iv saline locked; call light within reach; will continue to monitor
--- NOTE | 2022-01-03 16:10 | NUR ---
awake in bed; spouse present at bedside; no apparent distress noted; pt offers no complaints; iv intact and saline locked; afib/paced on monitor; call light within reach; will continue to monitor
--- NOTE | 2022-01-03 17:01 | NUR ---
awake in bed; offers no complaints; ra; afib; cardizem remain off; call light within reach; will continue to monitor
--- NOTE | 2022-01-03 18:08 | NUR ---
awake sitting in the side of the bed eating dinner; offers no complaints; iv intact; afib on monitor; deny needs; call light within reach
--- NOTE | 2022-01-03 19:00 | NUR ---
REPORT GIVEN BY NAHED BREEN. PATIENT RESTING IN BED WATCHING TV. RESP EVEN AND UNLABORED. NO S/S OF DISTRESS NOTED. FALL AND SAFTEY PRECAUTIONS IN PLACE. IV SLAINE LOCKED, CARDIZEM DRIP IS CURRENTLY OFF. TELE IS A-FIB/PACED HR 90-94. PATIENT INFORMED TO CALL WITH ANY QUESTIONS OR CONCERNS. PLAN OF CARE DISCUSSED.
--- NOTE | 2022-01-03 20:25 | NUR ---
PM MEDICATION GIVEN
--- NOTE | 2022-01-03 21:49 | NUR ---
PATIENT RESTING WITH EYES CLOSED. RESP EVEN AND UNLABORED. NO S/S OF DISTRESS NOTED.
--- NOTE | 2022-01-03 23:03 | NUR ---
PATIENT'S O2 SAT DROPPED TO 77%. PATIENT WAS AWOKEN AND COACHED TO TAKE DEPP BREATHS. SATURATIONS WENT ABOVE 90% QUICKLY.
[2022-01-04] VITALS (14 sets, daily range): BP systolic 97–127; BP diastolic 53–81
--- NOTE | 2022-01-04 01:10 | NUR ---
RT CALLED, PATIENT SOB. BREATHING TREATMENT REQUESTED AT THIS TIME
--- NOTE | 2022-01-04 01:51 | NUR ---
PATIENT REQUESTING THAT STAFF PUT LOTION ON HIS BACK
--- NOTE | 2022-01-04 01:56 | NUR ---
PATIENT STATES WHEN HIS BACK GETS COLD THE FRONT OF HIS CHEST GETS TIGHT. PATIENT HAS CURRENTLY BEEN MEDICATIED WITH MILK OF MAG FOR HEARTBURN. WILL CONTIUNE TO ALINE.
[2022-01-04 05:38] LABS: HEMATOCRIT 38.7 % (39.0-50.0); HEMOGLOBIN 12.9 g/dl (14.0-18.0); IMMATURE GRANULOCYTES 0.2 % (0.0-5.0); MEAN CELL VOLUME 94.4 fL CALC (80.0-100.0); MEAN CORPUSCULAR HGB 31.5 pG CALC (26.0-32.0); MEAN CORPUSCULAR HGB CONC 33.3 g/dL CAL (32.0-36.0); NEUT# 5.46 thou/uL (1.82-7.42); RED BLOOD COUNT 4.1 mill/uL (4.70-6.10); RED CELL DISTRI WIDTH 13.3 % (11.5-15.5)
[2022-01-04 05:50] LABS: ALBUMIN 3.5 g/dL (3.2-5.0); ALKALINE PHOSPHATASE 65 u/l (38-126); ANION GAP 10 (6-22 (CALC)); BILIRUBIN, TOTAL 0.7 mg/dL (0.0-1.4); BUN 27 mg/dL (8-23); BUN/CREATININE RATIO 37 (12-20 (CALC)); CARBON DIOXIDE 32 mmol/l (22-30); CHLORIDE 100 mmol/l (95-108); CREATININE 0.7 mg/dL (0.7-1.3); GFR FOR AFR.AMER. > 60 ML/MIN (>=60 (CALC)); GFR OTHER RACES > 60 ML/MIN (>=60 (CALC)); POTASSIUM 4.3 mmol/l (3.5-5.1); SGOT/AST 20 u/l (19-48); SODIUM 137 mmol/l (137-146); TOTAL PROTEIN 6.4 g/dL (6.3-8.2)
--- NOTE | 2022-01-04 09:34 | NUR ---
PATIENT AMBULATED IN ROOM HR WAS MOSTLY IN THE LOW 100S DID INCREASE TO 120 BUT DID NOT SUSTAIN. PATIENT REPORTED FEELING "SO SO GOOD".
--- NOTE | 2022-01-04 10:34 | NUR ---
NURSE CALLED SPOUSE TO GIVE UPDATE. INFORMED HER OF POSSIBLE DISCHARGE TODAY.
[2022-01-04] MEDS ORDERED: CARDIZEM CD120 MG PO (13:16)
[2022-01-04] MEDS ORDERED: MUCOMYST IN ×2 (13:17→14:51)
--- NOTE | 2022-01-04 14:10 | NUR ---
Discharge instructions given. Patient verbalizes understanding of same. Discharged in stable condition via Wheelchair to Home with staff. All belongings sent with pt.
== END 2022-01-04 14:10 | DRG 309 ==
LOC: ED 15:54 → ED-I 18:00 → ED 18:16 → MS2 18:17 → ICU 12-31 12:00
PROVIDERS: Emergency Medicine; ADMIT Hospitalist; ATTEND Hospitalist
DX: I48.91 Unspecified atrial fibrillation (principal); J44.0 Chronic obstructive pulmonary disease with (acute) lower respiratory infection; J44.1 Chronic obstructive pulmonary disease with (acute) exacerbation; J20.9 Acute bronchitis, unspecified; I10 Essential (primary) hypertension; E78.5 Hyperlipidemia, unspecified; M10.9 Gout, unspecified; Z86.14 Personal history of Methicillin resistant Staphylococcus aureus infection; Z79.01 Long term (current) use of anticoagulants; Z95.0 Presence of cardiac pacemaker; Z20.822 Contact with and (suspected) exposure to COVID-19
CPT/HCPCS: G0378

== ENCOUNTER 2022-03-02 08:50 | Inpatient (IN) | payer MEDICARE ==
[~2022-03-02] VITALS: Ht 172.7 cm; Wt 80.4 kg
[2022-03-02] VITALS (40 sets, daily range): BP systolic 86–134; BP diastolic 51–94
[~2022-03-02 08:50] MED LIST changes: +CARDIZEM CD120 MG PO; +MUCOMYST IN
--- NOTE | 2022-03-02 09:04 | NUR ---
PT ESCORTED VIA WHEELCHAIR TO ROOM 6 FOR EVAL OF SOB
[2022-03-02 09:16] LABS: HEMATOCRIT 36.1 % (39.0-50.0); HEMOGLOBIN 12.4 g/dl (14.0-18.0); IMMATURE GRANULOCYTES 0.2 % (0.0-5.0); MEAN CELL VOLUME 93.5 fL CALC (80.0-100.0); MEAN CORPUSCULAR HGB 32.1 pG CALC (26.0-32.0); MEAN CORPUSCULAR HGB CONC 34.3 g/dL CAL (32.0-36.0); NEUT# 4.37 thou/uL (1.82-7.42); RED BLOOD COUNT 3.86 mill/uL (4.70-6.10); RED CELL DISTRI WIDTH 14.3 % (11.5-15.5)
--- NOTE | 2022-03-02 09:32 | NUR ---
TITRATED CARDIZEM TO 15MG/HR
[2022-03-02 09:46] LABS: ALKALINE PHOSPHATASE 91 u/l (38-126); BILIRUBIN, TOTAL 0.8 mg/dL (0.0-1.4); BUN 14 mg/dL (8-23); BUN/CREATININE RATIO 21 (12-20 (CALC)); CARBON DIOXIDE 26 mmol/l (22-30); CHLORIDE 94 mmol/l (95-108); CREATININE 0.7 mg/dL (0.7-1.3); GFR FOR AFR.AMER. > 60 ML/MIN (>=60 (CALC)); GFR OTHER RACES > 60 ML/MIN (>=60 (CALC)); POTASSIUM 4.3 mmol/l (3.5-5.1); SGOT/AST 25 u/l (19-48); TOTAL PROTEIN 7.3 g/dL (6.3-8.2)
[2022-03-02 09:53] LABS: ALBUMIN 4.4 g/dL (3.2-5.0); ANION GAP 14 (6-22 (CALC)); SODIUM 130 mmol/l (137-146)
--- NOTE | 2022-03-02 10:15 | NUR ---
PT ASSISTED WITH URINAL AND READJUSTED IN BED.
[2022-03-02] MEDS ORDERED: LOSARTAN POTASS25 MG PO (10:53)
[2022-03-02] MEDS ORDERED: FUROSEMIDE20 MG PO (10:54)
[2022-03-02] MEDS ORDERED: TAMSULOSIN0.4 MG PO (10:55)
--- NOTE | 2022-03-02 11:39 | NUR ---
PT URINATED 700ML
--- NOTE | 2022-03-02 13:36 | NUR ---
PT TO ICU5, BEDSIDE REPORT GIVEN TO RN
--- NOTE | 2022-03-02 19:45 | NUR ---
awakens easily. no distress. o2 ont per nc. monitor technician shows a fib. #18 rac & lac saline locks. fluids restricted. voided per urinal. fall precautions cont.
--- NOTE | 2022-03-02 22:00 | NUR ---
eyes closed. no distress. o2 cont.
--- NOTE | 2022-03-02 22:30 | NUR ---
lab here. blood drawn.
[2022-03-03] VITALS (24 sets, daily range): BP systolic 93–123; BP diastolic 53–80
--- NOTE | 2022-03-03 00:01 | NUR ---
resting quietly. no distress. rotary slicing machine operator shows a fib.
--- NOTE | 2022-03-03 02:00 | NUR ---
resting quietly. no apparent distress. monitor shows a fib.
--- NOTE | 2022-03-03 04:48 | NUR ---
lab here. blood drawn.
[2022-03-03 05:24] LABS: HEMATOCRIT 35.2 % (39.0-50.0); HEMOGLOBIN 11.9 g/dl (14.0-18.0); MEAN CELL VOLUME 94.4 fL CALC (80.0-100.0); MEAN CORPUSCULAR HGB 31.9 pG CALC (26.0-32.0); MEAN CORPUSCULAR HGB CONC 33.8 g/dL CAL (32.0-36.0); RED BLOOD COUNT 3.73 mill/uL (4.70-6.10); RED CELL DISTRI WIDTH 14.4 % (11.5-15.5)
[2022-03-03 05:46] LABS: ANION GAP 12 (6-22 (CALC)); BUN 19 mg/dL (8-23); BUN/CREATININE RATIO 27 (12-20 (CALC)); CALCULATED LDLCHOLESTEROL 65 mg/dL (62-129 (CALC)); CHLORIDE 92 mmol/l (95-108); CREATININE 0.7 mg/dL (0.7-1.3); GFR FOR AFR.AMER. > 60 ML/MIN (>=60 (CALC)); GFR OTHER RACES > 60 ML/MIN (>=60 (CALC)); HDL CHOLESTEROL 47 mg/dL (>=40); MAGNESIUM 1.8 mg/dL (1.6-2.3); POTASSIUM 3.8 mmol/l (3.5-5.1); SODIUM 134 mmol/l (137-146); TOTAL CHOLESTEROL 120 mg/dl (0-199); TOTAL TRIGLYCERIDES 41 mg/dl (30-149); VLDL CHOLESTROL 8 mg/dl (0-38 (CALC))
[2022-03-03 05:51] LABS: CARBON DIOXIDE 34 mmol/l (22-30)
--- NOTE | 2022-03-03 10:26 | NUR ---
PATIENT LEFT UNIT BY WHEELCHAIR WITH NAHED ZEPEDA FOR TRANSFER TO ROOM 263, PATIENT AWAKE AND ALERT, NO C/O PAIN OR DISCOMFORT, NO S/S OF DISTRESS NOTED, ABLE TO TRANSFER INTO WHEELCHAIR INDEPENDENTLY.
--- NOTE | 2022-03-03 10:32 | NUR ---
MED-SURG W/TELE ORDERS PLACED IN [facility] AND CONTIUNED CURRENT INPATIENT MEDICATIONS PER MD.
--- NOTE | 2022-03-03 12:00 | NUR ---
PT CAME FORM ICU ON WHEELCHAIR, A/O X3, NO DISTRESS NOTED, PT ON TELE RUNNING AFIB 100'S, PT ON 2L O2, PT CAN AMBULE WITH ONE ASSIST, BP IS SOFT, IS GETTING LASIX FOR DIURESIS, PT'S HR GOES UP WITH ANY EXERTION, PT USES URINAL AT BEDSIDE WITH ASSISTANCE TO STAND, RESP NONLABORED. WILL CONTINUE TO MONITOR
--- NOTE | 2022-03-03 22:18 | NUR ---
PATIENT RESTING IN BED WITH EYES CLOSED. EASILY AROUSED TO SPEECH. AWAKE ALERT AND ORIENTEDX3. PATIENT WITH O2 VIA NASAL CANNULA IN PLACE AT 2LPM WITH O2 SAT OF 96%. NO COMPLAINTS AT THIS TIME. TELE MONITOR IN [id number] AT THIS TIME. SALINE LOCK TO RAC AND LAC-SITES ARE HEALTHY AT THIS TIME. PATIENT WITH BLE SWELLING RIGHT GREATER THAT LEFT. PULSES ARE PALPABLE. ENCOURAGED PATIENT TO ELEVATE FEET WHEN POSSIBLE. INSTRUCTED PATIENT REGUARDING DAILY WEIGHTS EVEN WHEN HE GOES HOME TO HELP MANAGE CHF. REPORT TO WEIGHT GAIN OF GREATER THAN 2-3LB IN 24 HOURS TO MD. LUNGS DIMINISHED IN THE BASES. AND IS LARGE WITH BS+. MEDICATED WITH MOM FOR CONSTIPATION. IINSTRUCTED TO USE URINAL FOR STRICT I&O. VERBALIZES UNDERSTANDING. SAFETY PRECAUTIONS REINFORCED. CALL LIGHT IN REACH. WILL CONT TO MONITOR.
[2022-03-04] VITALS (9 sets, daily range): BP systolic 76–150; BP diastolic 43–73
--- NOTE | 2022-03-04 04:17 | NUR ---
PATIENT SITTING UP IN BED-C/O SOB AND ASKING FOR NEB TREATMENTAND WAS GIVEN ONE. STILL SOB AND MEDICATED WITH LASIX 40MG IVP ORDERED VIA RIGHT AC IV SITE. LAC SITE IS LEAKING AND D/C'ED. HELD PRESSURE FOR 25 MINUTES TO STOP BLEEDING. PATIENT DOES TAKE ELIQUIS FOR A-FIB. TELE MONITOR IN PLACE. O2 VIA NASAL CANNULA IN PLACE AT 2LPM. SAFETY PRECAUTIONS REINFORCED. CALL LIGHT IN REACH. WILL CONT TO MONITOR.
--- NOTE | 2022-03-04 05:46 | NUR ---
PATIENT ASSIST OOB TO THE BR FOR BM THIS MORNING. WEIGHT TODAY IS 89KG ON STANDING SCALE-UP 1KG FROM YESTERDAY. TOTAL URINE OUTPUT FOR SHIFT IS 1900CC. BACK IN BED WITH O2 VIA NASAL CANNULA IN PLACE. TELE MONITOR IN PLACE-A-FIB HIGH 90'S TO LOW 100'S. CALL LIGHT IN REACH. WILL CONT TO MONITOR.
[2022-03-04 05:54] LABS: HEMATOCRIT 37.1 % (39.0-50.0); HEMOGLOBIN 12.3 g/dl (14.0-18.0); IMMATURE GRANULOCYTES 0.1 % (0.0-5.0); MEAN CELL VOLUME 96.6 fL CALC (80.0-100.0); MEAN CORPUSCULAR HGB CONC 33.2 g/dL CAL (32.0-36.0); NEUT# 7.18 thou/uL (1.82-7.42); RED BLOOD COUNT 3.84 mill/uL (4.70-6.10); RED CELL DISTRI WIDTH 14.4 % (11.5-15.5)
[2022-03-04 06:04] LABS: ANION GAP 13 (6-22 (CALC)); BUN 30 mg/dL (8-23); BUN/CREATININE RATIO 33 (12-20 (CALC)); CARBON DIOXIDE 38 mmol/l (22-30); CHLORIDE 89 mmol/l (95-108); CREATININE 0.9 mg/dL (0.7-1.3); GFR FOR AFR.AMER. > 60 ML/MIN (>=60 (CALC)); GFR OTHER RACES > 60 ML/MIN (>=60 (CALC)); POTASSIUM 3.9 mmol/l (3.5-5.1); SODIUM 136 mmol/l (137-146)
[2022-03-04 06:06] LABS: MAGNESIUM 2.3 mg/dL (1.6-2.3)
--- NOTE | 2022-03-04 07:00 | NUR ---
CHANGE OF SHIFT REPORT, PT SLEEPING AT THIS TIME, BREATHING EVEN AND NON-LABORED ON 2L 02, TELE MONITOR IN PLACE, CALL CHOW IN REACH AND BED LOCKED IN LOWEST POSITION.
--- NOTE | 2022-03-04 07:03 | NUR ---
PT ON 2L NC. O2 SAT IS 99%. PT. IN NO APPARENT DISTRESS.
--- NOTE | 2022-03-04 11:25 | NUR ---
PTC/ONOT BEING ABLETO COMMUNICATEA WITH SPOUSE VIA PHOME PHONE IS DEFFECTIVE, PLAN IS TO CHANGE ROOM PROBLEM CANNOT BE FIXED TODAY.
--- NOTE | 2022-03-04 12:00 | NUR ---
PT C/O WANTING USE OF TELEPHONE TO CONTACT SPOUSE, MOVED FROM ROOM 263-276, SATISFIED WITH CHANGE.
--- NOTE | 2022-03-04 16:00 | NUR ---
NO NEW C/O ASSISTED TO BED FROM RECLINER AND CALL CHOW PLACED WITHIN REACH.
[2022-03-05] VITALS (10 sets, daily range): BP systolic 89–112; BP diastolic 53–73
--- NOTE | 2022-03-05 06:15 | NUR ---
MIN ASSISTANCE NEED TO HELP PATIENT TO THE RESTROOM. HR INCREASE TO 130S WITH ACTIVITY. GOWN CHANGED CALL LIGHT AND BELONGING NEAR PATIENT.
[2022-03-05 06:21] LABS: HEMATOCRIT 37.2 % (39.0-50.0); HEMOGLOBIN 12.1 g/dl (14.0-18.0); MEAN CELL VOLUME 97.4 fL CALC (80.0-100.0); MEAN CORPUSCULAR HGB 31.7 pG CALC (26.0-32.0); MEAN CORPUSCULAR HGB CONC 32.5 g/dL CAL (32.0-36.0); RED BLOOD COUNT 3.82 mill/uL (4.70-6.10); RED CELL DISTRI WIDTH 14.3 % (11.5-15.5)
[2022-03-05 06:43] LABS: ANION GAP 11 (6-22 (CALC)); BUN 33 mg/dL (8-23); BUN/CREATININE RATIO 43 (12-20 (CALC)); CHLORIDE 89 mmol/l (95-108); CREATININE 0.8 mg/dL (0.7-1.3); GFR FOR AFR.AMER. > 60 ML/MIN (>=60 (CALC)); GFR OTHER RACES > 60 ML/MIN (>=60 (CALC)); MAGNESIUM 2.3 mg/dL (1.6-2.3); POTASSIUM 3.8 mmol/l (3.5-5.1); SODIUM 136 mmol/l (137-146)
[2022-03-05 06:45] LABS: CARBON DIOXIDE 40 mmol/l (22-30)
--- NOTE | 2022-03-05 06:45 | NUR ---
RESULT OF CO2 RESULTING IN 40 OBTAINED FROM RR IN LAB. DR MCGRAW INFORMED. NO NEW ORDERS
--- NOTE | 2022-03-05 07:05 | NUR ---
RECIEVED BEDSIDE REPORT. PT SLEEPING, EASILY ARROUSIBLE. BREATHING EVEN AND NON LABORED, WEARING O2 VIA NASAL CANULA. TELE MONITOR IN PLACE. UPPER EXTREMITIES STRONG, NO DRIFT NOTED. ABDOMEN NON DISTENDED, NON TENDER WITH ACTIVE BOWEL SOUNDS X4. LOWER EXTREMITIES STRONG, NO DRIFT BUT EDEMA NOTED IN BOTH EXTREMITIES. EDEMA WORSE ON RIGHT SIDE. PEDIAL PULSES WEAK. PT DENIES PAIN AT THIS TIME. CALL LIGHT IN REACH. ALL SAFETY PRECAUTIONS IN PLACE AT THIS TIME.
--- NOTE | 2022-03-05 11:55 | NUR ---
PT RESTINGIN BED. IV SITE NEEDED TO BE CHECKED DUE TO BLEEDING OUT OF SITE. DRESSING WAS CHANGED, IV WAS ABLE TO BE FLUSHED. NO PAIN OR BURNING REPORTED FROM PT. IV SITE NOT RED OR HARD. BREATHING NON LABORED. A/O X3. PT DENIES ANY FURTHER NEEDS AT THIS TIME. ALL SAFETY PRECAUTIONS IN PLACE AT THIS TIME.
--- NOTE | 2022-03-05 16:30 | NUR ---
PT RESTING IN BED. BREATHING REMAINS EVEN AND NON LABORED. NO COMPLAINTS AT THIS TIME. RENA SITE PATENT, SALINE LOCKED. PT DENIES ANY NEEDS AT THIS TIME. CALL LIGHT IN REACH. ALL SAFETY PRECAUTIONS IN PLACE AT THIS TIME.
[2022-03-06] VITALS (10 sets, daily range): BP systolic 103–133; BP diastolic 61–90
[2022-03-06 06:51] LABS: ANION GAP 12 (6-22 (CALC)); BUN 27 mg/dL (8-23); BUN/CREATININE RATIO 40 (12-20 (CALC)); CARBON DIOXIDE 38 mmol/l (22-30); CHLORIDE 90 mmol/l (95-108); CREATININE 0.7 mg/dL (0.7-1.3); GFR FOR AFR.AMER. > 60 ML/MIN (>=60 (CALC)); GFR OTHER RACES > 60 ML/MIN (>=60 (CALC)); MAGNESIUM 2.7 mg/dL (1.6-2.3); SODIUM 135 mmol/l (137-146)
[2022-03-06 06:56] LABS: POTASSIUM 4.6 mmol/l (3.5-5.1)
--- NOTE | 2022-03-06 07:35 | NUR ---
RECIEVED BEDSIDE REPORT. PT IN BED SLEEPING AT THIS TIME. NO APARENT DISSTRESS. EASILY ARROUSIBLE TO SPEECH, A/O X3. BREATHING IS EVEN AND NON LABORED, O2 IN PLACE VIA NASAL CANULA. LUNG SOUNDS DIMINISHED. ABDOMEN NON DISTENDED, NON TENDER WITH ACTIVE BOWEL SOUNDS X4. REPORTED LBM EARLY THIS MORNING. NO DIFFICULTY URINATING. NO DRIFT IN ANY EXTREMITY. BILATERAL LOWER EDEMA, RIGHT LE HAS WORSE EDEMA. PT DENIES PAIN OR FURTHER NEEDS AT THIS TIME. CALL LIGHT IN REACH. ALL SAFETY PRECAUTIONS IN PLACE AT THIS TIME.
--- NOTE | 2022-03-06 11:55 | NUR ---
PT SITTING AT SIDE OF BED AMUSED WITH HOW HE SPILLED HIS WATER CUP WHILE ON THE PHONE. PT WAS CLEANED BY AIDE. BREATHING REMAINED EVEN AND NONLABORED, O2 IN PLACE AND LUNG SOUNDS THE SAME. IV SITE PATENT. DENIES PAIN OR ANY OTHER NEEDS AT THIS TIME. CALL LIGHT IN REACH. ALL SAFETY PRECAUTIONS IN PLACE AT THIS TIME.
--- NOTE | 2022-03-06 16:05 | NUR ---
PT HR 100-125 BUT NOT SUSTAINING 120'S. DR MCGRAW INFORMED. NO NEW ORDERS OBTAINED.
--- NOTE | 2022-03-06 16:15 | NUR ---
PT IN ROOM WITH AT BEDSIDE. ALERT AND ORIENTATED X3. PT BREATHING REMAINS THE SAME. PT DENIES ANY NEEDS AT THIS TIME. CALL LIGHT IN REACH. ALL SAFETY PRECAUTIONS IN PLACE AT THIS TIME.
--- NOTE | 2022-03-06 18:25 | NUR ---
WOOD CABINET FINISHER INFORMED OF HR IN 15O. PT SITTING ON SIDE OF BED EATING DINNER, VITALS OBATAINED. HR REMAINS 120-130. THIS HAS BEEN NORMAL FOR PT WHILE EATING, WHEN COMPLETING MEAL HR WILL LOWER. DR MCGRAW INFORMED PREVIOUSLY INFORMED AND AWARE. PT DENIES OF ANY PAINS OR DISCOMFORTS.
[2022-03-07] VITALS (8 sets, daily range): BP systolic 106–127; BP diastolic 62–76
[2022-03-07 06:34] LABS: ANION GAP 12 (6-22 (CALC)); BUN 29 mg/dL (8-23); BUN/CREATININE RATIO 46 (12-20 (CALC)); CARBON DIOXIDE 38 mmol/l (22-30); CHLORIDE 89 mmol/l (95-108); CREATININE 0.6 mg/dL (0.7-1.3); GFR FOR AFR.AMER. > 60 ML/MIN (>=60 (CALC)); GFR OTHER RACES > 60 ML/MIN (>=60 (CALC)); MAGNESIUM 2.5 mg/dL (1.6-2.3); POTASSIUM 4.2 mmol/l (3.5-5.1); SODIUM 135 mmol/l (137-146)
--- NOTE | 2022-03-07 08:09 | NUR ---
PT SITTING ON SIDE OF BED EATING BREAKFAST. PT A/OX3. RESPIRATIONS EVEN AND UNLBAORED ON 3L NC, O2 96%. O2 TITRATED TO 2L NC. LUNG SOUNDS DIMINISHED. HEART RHYTHM IRRGULAR ON TELE. HX OF AFIB. BOWEL SOUNDS ACTIVE. #20G LW FLUSHED. SKIN INTACT. TRACE EDEMA. 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 PT STATES "IT COMES AND GOES, A BREATHING TREATMENT USUALLY HELPS". NEB OFFERED AT THIS TIME, PT STATES HE WOULD LIKE ONE LATER IN MORNING. PT INFORMED TO CALL WHEN NEEDING. PT VERBALIZED UNDERSTANDING. PT DENIES OF ANY ADDITIONAL NEEDS AT THIS TIME. ALL SAFTEY PRECAUTIONS ARE IN PLACE WITH CALL LIGHT IN REACH
--- NOTE | 2022-03-07 10:07 | NUR ---
PT. ON 2L NC. O2 SAT 94%.
--- NOTE | 2022-03-07 12:04 | NUR ---
PT SLEEPING IN SEMI FOWLERS POSITION. RESPIRATIONS EVEN AND UNLABORE DON 2L NC. TELE MONITORING IN PLACE. ALTERATIONS SEWER AWARE OF PT ELEVATED HR ON EXCERTION. MD AWARE. NO NEW ORDERS. ONCE PT IS ASSISTED BACK INTO BED, HR BECOMES STABLE. NO SIGNS OF ANY PAINS OR DISCOMFORTS. ALL SAFTEY PRECAUTIONS ARE IN PLACE WITH CALL LIGHT IN REACH
--- NOTE | 2022-03-07 15:12 | NUR ---
TALENT ACQUISITION PROGRAM MANAGER INFORMED OF PT HR 120-150. PT USING URINAL. 400 OF CLEAR YELLOW URINE NOTED. TELE MONITORING CALLED.
--- NOTE | 2022-03-07 20:00 | NUR ---
PATIENT RESTING IN BED. NO DISTRESS NOTED. PATIENT DENIES PAIN OR DISCOMFORT AT THIS TIME. DRSING TO BLT HANDS CLEAN, DRY AND INTACT. STRONG RADIAL PULSES BILATERALLY. FALL PRECAUTIONS IN PLACE. CALL CHOW WITHIN REACH.
[2022-03-08] VITALS (8 sets, daily range): BP systolic 95–136; BP diastolic 55–92
[2022-03-08 05:35] LABS: HEMATOCRIT 37.6 % (39.0-50.0); HEMOGLOBIN 12.6 g/dl (14.0-18.0); IMMATURE GRANULOCYTES 0.1 % (0.0-5.0); MEAN CELL VOLUME 97.2 fL CALC (80.0-100.0); MEAN CORPUSCULAR HGB 32.6 pG CALC (26.0-32.0); MEAN CORPUSCULAR HGB CONC 33.5 g/dL CAL (32.0-36.0); NEUT# 4.83 thou/uL (1.82-7.42); RED BLOOD COUNT 3.87 mill/uL (4.70-6.10); RED CELL DISTRI WIDTH 13.6 % (11.5-15.5)
[2022-03-08 06:13] LABS: ANION GAP 11 (6-22 (CALC)); BUN 34 mg/dL (8-23); BUN/CREATININE RATIO 38 (12-20 (CALC)); CARBON DIOXIDE 39 mmol/l (22-30); CHLORIDE 89 mmol/l (95-108); CREATININE 0.9 mg/dL (0.7-1.3); GFR FOR AFR.AMER. > 60 ML/MIN (>=60 (CALC)); GFR OTHER RACES > 60 ML/MIN (>=60 (CALC)); MAGNESIUM 2.4 mg/dL (1.6-2.3); SODIUM 136 mmol/l (137-146)
[2022-03-08 06:14] LABS: POTASSIUM 3.3 mmol/l (3.5-5.1)
--- NOTE | 2022-03-08 08:35 | NUR ---
SHIFT CHANGE REPORT, PT AWAKE ALERT AND ORIENTED SITTING UP AT BEDSIDE, O2 @ 2L VIA NC IN PLACE, TELE MONITOR IN PLACE, DENIES PAIN, CALL HCOW IN REACH AND BED LOCKED IN LOWEST POSITION.
--- NOTE | 2022-03-08 11:30 | NUR ---
ASSISTED TO RECLINER AND ADVISED TO SIT UP UNTIL 45 MINS-1 HR AFTER MEAL THEN MAY GO BACK TO BED TO HAVE AFTERNOON REST, CALL CHOW IN REACH.
--- NOTE | 2022-03-08 16:00 | NUR ---
HEART RATE GETS TACHY WITH ANY AND ALL EXERTION BUT DECREASES AT REST.
--- NOTE | 2022-03-08 16:23 | NUR ---
RESTED IN BED AND NOW SITTING UP IN RECLINER, SPOUSE VISITING, ALL NEEDS ADDRESSED.
--- NOTE | 2022-03-08 20:09 | NUR ---
PT SITTING ON SIDE OF BED EATING. AFIB WITH RVR NOTED ON MONITOR; HR ABOVE 120'S. NO DISTRESS NOTED. PATIENT DENIES ANY CHEST DISCOMFORT OR ACUTE CHANGES. METOPROLOL GIVEN ORDERED.
[2022-03-09] VITALS (9 sets, daily range): BP systolic 80–141; BP diastolic 42–85
--- NOTE | 2022-03-09 08:00 | NUR ---
PT RESPOSITIONED IN BED. ASSESSMENT PERFORMED. TELE MONITOR IN PLACE, CONTINOUS MONTORING PER ED. UPDATED PT ON CURRENT POC. STATES NO QUESTIONS/ CONCERNS. FALL/SAFTEY PRECAUTION IN PLACE. CALL LIGHT WITHIN REACH.
[2022-03-09 08:05] LABS: BUN 33 mg/dL (8-23); BUN/CREATININE RATIO 47 (12-20 (CALC)); CHLORIDE 90 mmol/l (95-108); CREATININE 0.7 mg/dL (0.7-1.3); GFR FOR AFR.AMER. > 60 ML/MIN (>=60 (CALC)); GFR OTHER RACES > 60 ML/MIN (>=60 (CALC)); MAGNESIUM 2.4 mg/dL (1.6-2.3); SODIUM 137 mmol/l (137-146)
[2022-03-09 08:13] LABS: ANION GAP 11 (6-22 (CALC)); POTASSIUM 3.9 mmol/l (3.5-5.1)
[2022-03-09 09:53] LABS: CARBON DIOXIDE 40 mmol/l (22-30)
--- NOTE | 2022-03-09 10:35 | NUR ---
CALLED DR MONZON OFFICE AT [phone] SPOKE TO ANDRES WAS TOLD SHE WILL GIVE THIS CONSULATION TO THE DOCTOR.
--- NOTE | 2022-03-09 13:34 | NUR ---
PT RESTING IN BED WITH O2 IN PLACE VIA NC @2L. STATES NO PAIN. FALL/SAFTEY PRECAUTION IN PLACE. CALL LIGHT WITHIN REACH
--- NOTE | 2022-03-09 16:55 | NUR ---
PT SLEEPING BREATHING EVEN AND UNLABORED. NO DISTRESS NOTED. FALL/SAFTEY PRECAUTION IN PLACE. CALL LIGHT WITHIN REACH
[2022-03-10 04:34] VITALS: BP 134/92
--- NOTE | 2022-03-10 04:59 | NUR ---
PT WAS WEIGHED ON STANDING SCALE (80.4 KG)
[2022-03-10 05:40] LABS: HEMATOCRIT 39.5 % (39.0-50.0); IMMATURE GRANULOCYTES 0.2 % (0.0-5.0); MEAN CELL VOLUME 95.9 fL CALC (80.0-100.0); MEAN CORPUSCULAR HGB 31.6 pG CALC (26.0-32.0); MEAN CORPUSCULAR HGB CONC 32.9 g/dL CAL (32.0-36.0); NEUT# 6.13 thou/uL (1.82-7.42); RED BLOOD COUNT 4.12 mill/uL (4.70-6.10); RED CELL DISTRI WIDTH 13.3 % (11.5-15.5)
[2022-03-10 06:18] LABS: ALBUMIN 3.8 g/dL (3.2-5.0); ALKALINE PHOSPHATASE 66 u/l (38-126); BILIRUBIN, TOTAL 0.7 mg/dL (0.0-1.4); BUN 31 mg/dL (8-23); BUN/CREATININE RATIO 34 (12-20 (CALC)); CHLORIDE 89 mmol/l (95-108); CREATININE 0.9 mg/dL (0.7-1.3); GFR FOR AFR.AMER. > 60 ML/MIN (>=60 (CALC)); GFR OTHER RACES > 60 ML/MIN (>=60 (CALC)); MAGNESIUM 2.1 mg/dL (1.6-2.3); POTASSIUM 3.7 mmol/l (3.5-5.1); SGOT/AST 43 u/l (19-48); SODIUM 134 mmol/l (137-146); TOTAL PROTEIN 6.9 g/dL (6.3-8.2)
[2022-03-10 06:26] LABS: ANION GAP 9 (6-22 (CALC)); CARBON DIOXIDE 40 mmol/l (22-30)
[2022-03-10 07:01] VITALS: BP 135/77
--- NOTE | 2022-03-10 07:53 | NUR ---
PT REPOSITIONED FOR BREAKFAST. O2 IN PLACE, VIA NC @2L. TELE MONITOR IN PLACE, CONTINOUS MONITORING PER ED. ASSESSMENT PERFORMED. UPDATED PT ON CURRENT POC. STATES REQUESTING MILK OF MAG. STATES NO PAIN, N/V. FALL/SAFTEY PRECAUTION IN PLACE. CALL LIGHT WITHIN REACH
[2022-03-10 10:18] VITALS: BP 108/65
[2022-03-10 10:32] VITALS: BP 126/65
[2022-03-10] MEDS ORDERED: DIGOXIN0.125 MG PO (11:04)
[2022-03-10] MEDS ORDERED: FUROSEMIDE20 MG PO (11:05)
[2022-03-10] MEDS ORDERED: CARDIZEM CD120 MG PO (11:05)
[2022-03-10] MEDS ORDERED: PREDNISONE10 MG PO (11:06)
[2022-03-10 11:13] VITALS: BP 101/67
[2022-03-10 11:22] VITALS: BP 101/67
--- NOTE | 2022-03-10 12:25 | NUR ---
PT RESTING EATING LUNCH. BREATING EVEN AND UNLABORED. STATES NO NEEDS AT THIS TIME. FALL/SAFTEY PRECAUTION IN PLACE. CALL LIGHT WITHIN REACH
--- NOTE | 2022-03-10 14:20 | NUR ---
Discharge instructions given. Patient verbalizes understanding of same. Discharged in stable condition via Wheelchair to Home with staff. All belongings sent with pt.
== END 2022-03-10 14:20 | disposition home health service (06) | DRG 291 ==
LOC: ED 08:50 → ED-I 10:00 → ED 10:26 → ICU 10:27 → MS2 10:27
PROVIDERS: Family Medicine; Internal Medicine; Nurse Practitioner; ADMIT Internal Medicine; ATTEND Internal Medicine
PROC: 0T9B70Z Drainage of Bladder with Drainage Device, Via Natural or Artificial Opening (ICD-10-PCS; principal; 2022-03-02)
DX: I13.0 Hypertensive heart and chronic kidney disease with heart failure and stage 1 through stage 4 chronic kidney disease, or unspecified chronic kidney disease (principal); I50.33 Acute on chronic diastolic (congestive) heart failure; J96.21 Acute and chronic respiratory failure with hypoxia; J44.1 Chronic obstructive pulmonary disease with (acute) exacerbation; I48.21 Permanent atrial fibrillation; N18.30 Chronic kidney disease, stage 3 unspecified; I49.5 Sick sinus syndrome; E78.5 Hyperlipidemia, unspecified; N40.1 Benign prostatic hyperplasia with lower urinary tract symptoms; R33.8 Other retention of urine; M10.9 Gout, unspecified; Z95.0 Presence of cardiac pacemaker; Z20.822 Contact with and (suspected) exposure to COVID-19

== ENCOUNTER 2022-03-27 14:26 | Emergency (ER) | payer MEDICARE ==
[~2022-03-27] VITALS: Ht 172.7 cm; Wt 100.0 kg
[~2022-03-27 14:26] MED LIST changes: +DIGOXIN0.125 MG PO; +LOSARTAN POTASS25 MG PO; +PREDNISONE10 MG PO
[2022-03-27 16:18] LABS: URINE BILIRUBIN - DIPSTICK NEGATIVE (NEGATIVE); URINE BLOOD DIPSTICK MODERATE (NEGATIVE); URINE COLOR YELLOW; URINE GLUCOSE - DIPSTICK NEGATIVE (NEGATIVE); URINE KETONE NEGATIVE (NEGATIVE); URINE LEUK ESTERASE NEGATIVE (NEGATIVE); URINE PROTEIN - DIPSTICK NEGATIVE (NEG-TRACE); URINE SPECIFIC GRAVITY 1.015; URINE UROBILINOGEN - DIPSTICK 0.2 E.U./dL (0.2)
[2022-03-27 16:22] LABS: URINE NITRITE - DIPSTICK NEGATIVE (Negative)
[2022-03-27 16:31] LABS: URINE SQUAMOUS EPITHELIAL CELL FEW EPI/hpf (0-FEW)
[2022-03-27 16:49] LABS: HEMATOCRIT 34.2 % (39.0-50.0); HEMOGLOBIN 11.7 g/dl (14.0-18.0); IMMATURE GRANULOCYTES 0.2 % (0.0-5.0); MEAN CELL VOLUME 94.2 fL CALC (80.0-100.0); MEAN CORPUSCULAR HGB 32.2 pG CALC (26.0-32.0); MEAN CORPUSCULAR HGB CONC 34.2 g/dL CAL (32.0-36.0); NEUT# 3.73 thou/uL (1.82-7.42); RED BLOOD COUNT 3.63 mill/uL (4.70-6.10); RED CELL DISTRI WIDTH 12.7 % (11.5-15.5)
[2022-03-27 16:57] LABS: ALBUMIN 3.8 g/dL (3.2-5.0); ALKALINE PHOSPHATASE 84 u/l (38-126); ANION GAP 10 (6-22 (CALC)); BILIRUBIN, TOTAL 0.7 mg/dL (0.0-1.4); BUN 7 mg/dL (8-23); BUN/CREATININE RATIO 12 (12-20 (CALC)); CARBON DIOXIDE 32 mmol/l (22-30); CHLORIDE 89 mmol/l (95-108); CREATININE 0.6 mg/dL (0.7-1.3); GFR FOR AFR.AMER. > 60 ML/MIN (>=60 (CALC)); GFR OTHER RACES > 60 ML/MIN (>=60 (CALC)); LIPASE 71 u/l (23-300); POTASSIUM 4.1 mmol/l (3.5-5.1); SGOT/AST 34 u/l (19-48); SODIUM 127 mmol/l (137-146); TOTAL PROTEIN 6.8 g/dL (6.3-8.2)
[2022-03-27 18:55] VITALS: BP 118/61
[2022-03-27] MEDS ORDERED: MACROBID100 M1 PO (19:12)
== END 2022-03-27 19:40 | disposition home or self-care (01) ==
LOC: ED 14:26
PROVIDERS: Family Medicine; Nurse Practitioner
DX: K59.00 Constipation, unspecified (principal); R30.0 Dysuria; E87.1 Hypo-osmolality and hyponatremia; H91.90 Unspecified hearing loss, unspecified ear; I10 Essential (primary) hypertension; J44.9 Chronic obstructive pulmonary disease, unspecified; I48.91 Unspecified atrial fibrillation; Z95.0 Presence of cardiac pacemaker

== ENCOUNTER 2022-04-16 09:13 | Emergency (ER) | payer MEDICARE ==
[~2022-04-16] VITALS: Ht 172.7 cm; Wt 83.0 kg
[2022-04-16] VITALS (7 sets, daily range): BP systolic 54–98; BP diastolic 31–62
[~2022-04-16 09:13] MED LIST changes: +MACROBID100 M1 PO
[2022-04-16] MEDS ORDERED: LISINOPRIL10 MG PO (09:39)
[2022-04-16 09:45] LABS: HEMATOCRIT 36.1 % (39.0-50.0); IMMATURE GRANULOCYTES 0.1 % (0.0-5.0); MEAN CELL VOLUME 96.5 fL CALC (80.0-100.0); MEAN CORPUSCULAR HGB 32.1 pG CALC (26.0-32.0); MEAN CORPUSCULAR HGB CONC 33.2 g/dL CAL (32.0-36.0); NEUT# 4.02 thou/uL (1.82-7.42); RED BLOOD COUNT 3.74 mill/uL (4.70-6.10); RED CELL DISTRI WIDTH 12.4 % (11.5-15.5)
[2022-04-16 10:07] LABS: ALBUMIN 3.9 g/dL (3.2-5.0); ALKALINE PHOSPHATASE 78 u/l (38-126); BILIRUBIN, TOTAL 0.5 mg/dL (0.0-1.4); BUN 9 mg/dL (8-23); BUN/CREATININE RATIO 9 (12-20 (CALC)); CARBON DIOXIDE 34 mmol/l (22-30); CHLORIDE 95 mmol/l (95-108); GFR FOR AFR.AMER. > 60 ML/MIN (>=60 (CALC)); GFR OTHER RACES > 60 ML/MIN (>=60 (CALC)); POTASSIUM 4.5 mmol/l (3.5-5.1); SGOT/AST 27 u/l (19-48); TOTAL PROTEIN 6.8 g/dL (6.3-8.2)
[2022-04-16 10:10] LABS: ANION GAP 11 (6-22 (CALC)); SODIUM 135 mmol/l (137-146)
[2022-04-16] MEDS ORDERED: NAPROXEN500 MG PO (10:23)
[2022-04-16] MEDS ORDERED: FLEXERIL5 M1 PO (10:24)
== END 2022-04-16 10:36 | disposition home or self-care (01) ==
LOC: ED 09:13
PROVIDERS: Emergency Medicine
DX: M50.30 Other cervical disc degeneration, unspecified cervical region (principal); M41.9 Scoliosis, unspecified; I10 Essential (primary) hypertension; J44.9 Chronic obstructive pulmonary disease, unspecified; I48.91 Unspecified atrial fibrillation; Z95.0 Presence of cardiac pacemaker

== ENCOUNTER 2022-05-25 10:32 | Observation (INO) | payer MEDICARE ==
[2022-05-25] VITALS (84 sets, daily range): BP systolic 59–132; BP diastolic 38–89
[~2022-05-25] VITALS: Ht 172.7 cm; Wt 73.9 kg
[~2022-05-25 10:32] MED LIST changes: +FLEXERIL5 M1 PO; +NAPROXEN500 MG PO
[2022-05-25 11:49] LABS: HEMATOCRIT 33.7 % (39.0-50.0); HEMOGLOBIN 11.4 g/dl (14.0-18.0); IMMATURE GRANULOCYTES 0.8 % (0.0-5.0); MEAN CELL VOLUME 97.7 fL CALC (80.0-100.0); MEAN CORPUSCULAR HGB CONC 33.8 g/dL CAL (32.0-36.0); NEUT# 5.3 thou/uL (1.82-7.42); RED BLOOD COUNT 3.45 mill/uL (4.70-6.10); RED CELL DISTRI WIDTH 13.8 % (11.5-15.5)
[2022-05-25 12:18] LABS: ALBUMIN 4.3 g/dL (3.2-5.0); BILIRUBIN, TOTAL 0.7 mg/dL (0.0-1.4); CREATININE 1.7 mg/dL (0.7-1.3); POTASSIUM 4.7 mmol/l (3.5-5.1); TOTAL PROTEIN 7.2 g/dL (6.3-8.2)
[2022-05-25 14:14] LABS: URINE BILIRUBIN - DIPSTICK NEGATIVE (NEGATIVE); URINE BLOOD DIPSTICK NEGATIVE (NEGATIVE); URINE COLOR YELLOW; URINE GLUCOSE - DIPSTICK NEGATIVE (NEGATIVE); URINE KETONE NEGATIVE (NEGATIVE); URINE LEUK ESTERASE NEGATIVE (NEGATIVE); URINE PROTEIN - DIPSTICK NEGATIVE (NEG-TRACE); URINE SPECIFIC GRAVITY <=1.005; URINE UROBILINOGEN - DIPSTICK 0.2 E.U./dL (0.2)
[2022-05-25 14:15] LABS: URINE NITRITE - DIPSTICK NEGATIVE (Negative)
[2022-05-26 00:15] VITALS: BP 105/47
[2022-05-26 04:28] VITALS: BP 111/56
[2022-05-26 06:10] LABS: CREATININE 1.5 mg/dL (0.7-1.3); POTASSIUM 4.5 mmol/l (3.5-5.1)
[2022-05-26 06:54] VITALS: BP 120/59
[2022-05-26 10:30] VITALS: BP 122/56
[2022-05-26 15:20] VITALS: BP 101/54
[2022-05-26] MEDS ORDERED: TRAMADOL HCL50 MG PO (16:45)
== END 2022-05-26 17:37 ==
LOC: ED 10:32 → ED-I 15:30 → ED 15:56 → MS2 15:57
PROVIDERS: Family Medicine; ADMIT Internal Medicine; ATTEND Internal Medicine
DX: I95.9 Hypotension, unspecified (principal); E86.0 Dehydration; N17.9 Acute kidney failure, unspecified; I11.0 Hypertensive heart disease with heart failure; I50.9 Heart failure, unspecified; I48.91 Unspecified atrial fibrillation; J44.9 Chronic obstructive pulmonary disease, unspecified; M54.50 Low back pain, unspecified; M54.2 Cervicalgia; E78.5 Hyperlipidemia, unspecified; M10.9 Gout, unspecified; Z86.14 Personal history of Methicillin resistant Staphylococcus aureus infection; Z91.81 History of falling; Z95.0 Presence of cardiac pacemaker; Z79.01 Long term (current) use of anticoagulants; Z20.822 Contact with and (suspected) exposure to COVID-19

== ENCOUNTER 2023-02-16 12:59 | Observation (INO) | payer MEDICARE ==
[~2023-02-16] VITALS: Ht 172.7 cm; Wt 77.4 kg
[2023-02-16] VITALS (19 sets, daily range): BP systolic 78–132; BP diastolic 46–77
[~2023-02-16 12:59] MED LIST changes: +TRAMADOL HCL50 MG PO
--- NOTE | 2023-02-16 13:25 | NUR ---
PT ARRIVED VIA EMS WITH COMPLAINTS OF GENERALIZED WEAKNESS. PT IS PLACED IN ER ROOM 13.
[2023-02-16 13:37] LABS: BASO% 0.5 % (0-3); EOS% 1.5 % (0-8); HEMATOCRIT 37.9 % (39.0-50.0); HEMOGLOBIN 12.7 g/dl (14.0-18.0); IMMATURE GRANULOCYTES 0.1 % (0.0-5.0); LYMPH% 24.7 % (15-41); MEAN CELL VOLUME 93.6 fL CALC (80.0-100.0); MEAN CORPUSCULAR HGB 31.4 pG CALC (26.0-32.0); MEAN CORPUSCULAR HGB CONC 33.5 g/dL CAL (32.0-36.0); MONO% 9.7 % (2-13); NEUT# 5.01 thou/uL (1.82-7.42); NEUT% 63.5 % (42-76); RED BLOOD COUNT 4.05 mill/uL (4.70-6.10); RED CELL DISTRI WIDTH 12.8 % (11.5-15.5)
[2023-02-16 13:52] LABS: ALBUMIN 4.2 g/dL (3.2-5.0); ALKALINE PHOSPHATASE 77 u/l (38-126); BUN 19 mg/dL (8-23); BUN/CREATININE RATIO 20 (12-20 (CALC)); CARBON DIOXIDE 26 mmol/l (22-30); CHLORIDE 96 mmol/l (95-108); GFR FOR AFR.AMER. > 60 ML/MIN (>=60 (CALC)); GFR OTHER RACES > 60 ML/MIN (>=60 (CALC)); SGOT/AST 32 u/l (19-48); SODIUM 133 mmol/l (137-146); TOTAL PROTEIN 7.8 g/dL (6.3-8.2)
[2023-02-16] MEDS ORDERED: CYMBALTA20 MG PO (13:52)
[2023-02-16] MEDS ORDERED: MACROBID100 M1 PO (13:53)
[2023-02-16] MEDS ORDERED: ZESTRIL10 M1 PO (13:54)
--- NOTE | 2023-02-16 14:00 | NUR ---
PT WITH HOB ELEVATED, AIRWAY PATENT, RESP EVEN AND NON LABORED, SKIN P/W/D. SPOUSE AT BEDSIDE, MONITOR SHOWS PACED RHYTHM. VSS.
[2023-02-16 14:12] LABS: ANION GAP 15 (6-22 (CALC)); BILIRUBIN, TOTAL 0.7 mg/dL (0.2-1.3); POTASSIUM 4.4 mmol/l (3.5-5.1)
--- NOTE | 2023-02-16 14:13 | NUR ---
SKIN TEAR FROM EMS IV SITE NOTED. AREA CLEANSED WITH NS AND ONE STERI STRIP APPLIED, PT TOLERATED WELL. VOICED APPRECIATION.
[2023-02-16 14:46] LABS: URINE BILIRUBIN - DIPSTICK Negative (NEGATIVE); URINE BLOOD DIPSTICK Trace-lysed (NEGATIVE); URINE GLUCOSE - DIPSTICK 100 mg/dL (NEGATIVE); URINE KETONE Negative (NEGATIVE); URINE LEUK ESTERASE Negative (NEGATIVE); URINE PROTEIN - DIPSTICK 30 mg/dL (NEG-TRACE); URINE SPECIFIC GRAVITY 1.015
[2023-02-16 14:49] LABS: URINE COLOR Amber
[2023-02-16 14:50] LABS: URINE BACTERIA RARE hpf
[2023-02-16 14:57] LABS: URINE NITRITE - DIPSTICK Positive (Negative)
--- NOTE | 2023-02-16 15:45 | NUR ---
PROVIDER AT BEDSIDE TO DISCUSS CLINICAL FINDINGS AND PLANS FOR ADMISSION. PT VERBALIZED UNDERSTANDING.
--- NOTE | 2023-02-16 16:12 | NUR ---
PT IN ROOM WITH FAMILY AT BEDSIDE. PT VITALS STABLE. PT EASY TO AROUSE. NO NEEDS VERBALIZED AT THIS TIME.
--- NOTE | 2023-02-16 19:30 | NUR ---
SHIFT ASSESSMENT DONE. PATIENT HAS A SKIN TEAR ON LEFT LOWER ARM THAT WAS BLEEDING THROUGH SO NURSE CHANGED AND APPLIED A PRESSURE DRESSING SINCE PATIENT IS ON ELIQUIS. PATIENT EDUCATED ON PROPER USE OF CALLL LIGHT AND HOW TO PREVENT FALLS. CALL LIGHT WITHIN REACH. PLAN OF CARE ONGOING.
[2023-02-17] VITALS (9 sets, daily range): BP systolic 92–139; BP diastolic 54–76
--- NOTE | 2023-02-17 00:30 | NUR ---
PATIENT RESTING IN BED, RESPIRATIONS EVEN AND UNLABORED. NO DISTRESS NOTED ON EXAM. PLAN OF CARE ONGOING. CALL LIGHT WITHIN REACH.
--- NOTE | 2023-02-17 05:00 | NUR ---
PATIENT SLEEPING NO CHANGES. CALL LIGHT WITHIN REACH.
[2023-02-17 06:22] LABS: HEMOGLOBIN 12.7 g/dl (14.0-18.0); MEAN CELL VOLUME 93.2 fL CALC (80.0-100.0); MEAN CORPUSCULAR HGB CONC 34.3 g/dL CAL (32.0-36.0); RED BLOOD COUNT 3.97 mill/uL (4.70-6.10); RED CELL DISTRI WIDTH 12.8 % (11.5-15.5)
[2023-02-17 06:38] LABS: ANION GAP 13 (6-22 (CALC)); BUN 24 mg/dL (8-23); BUN/CREATININE RATIO 24 (12-20 (CALC)); CALCULATED LDLCHOLESTEROL 96 mg/dL (62-129 (CALC)); CARBON DIOXIDE 28 mmol/l (22-30); CHLORIDE 94 mmol/l (95-108); CHOLESTEROL HDL RATIO 4.3 (<4.4 (CALC)); GFR FOR AFR.AMER. > 60 ML/MIN (>=60 (CALC)); GFR OTHER RACES > 60 ML/MIN (>=60 (CALC)); HDL CHOLESTEROL 36 mg/dL (39.0-59.0); SODIUM 132 mmol/l (137-146); TOTAL CHOLESTEROL 154 mg/dl (0-199); TOTAL TRIGLYCERIDES 115 mg/dl (0-149); VLDL CHOLESTROL 23 mg/dl (0-38 (CALC))
--- NOTE | 2023-02-17 07:38 | NUR ---
PT RESTING IN HIGH FOWLERS POSTION A/OX3 PT ABLE TO AMBULATE WITH STANDBY ASSIST. RESPIRATIONS ON ROOM AIR. IV SITE NOTED. PT DENIES ADDITIONAL NEEDS AT THE TIME ALL SAFETY PRECAUTIONS IN PLACE WITH CALL LIGHT IN REACH.
--- NOTE | 2023-02-17 12:38 | NUR ---
ER STEVEN PT SUSTAINING IN 120-126. HEARTMONITOR READ AFIB FACTORY MANAGER INFORMED. MEDICATIONS PROVIDED PER EMAR.
--- NOTE | 2023-02-17 16:07 | NUR ---
PT RESTINGIN SEMI FOWLERS POSITION. PT DENIES ADDIITONAL NEEDS AT THE TIME. PT AWARE OF MEDICATION RECIEVING TIMES. ALL SAFETY PRECAUTIONS IN PLACE.
[2023-02-18] VITALS (8 sets, daily range): BP systolic 92–131; BP diastolic 48–76
[2023-02-18 05:58] LABS: HEMATOCRIT 38.3 % (39.0-50.0); MEAN CORPUSCULAR HGB 31.6 pG CALC (26.0-32.0); MEAN CORPUSCULAR HGB CONC 33.9 g/dL CAL (32.0-36.0); RED BLOOD COUNT 4.12 mill/uL (4.70-6.10); RED CELL DISTRI WIDTH 12.9 % (11.5-15.5)
[2023-02-18 06:04] LABS: ALBUMIN 4.1 g/dL (3.2-5.0); ALKALINE PHOSPHATASE 59 u/l (38-126); BUN 30 mg/dL (8-23); BUN/CREATININE RATIO 31 (12-20 (CALC)); CHLORIDE 95 mmol/l (95-108); GFR FOR AFR.AMER. > 60 ML/MIN (>=60 (CALC)); GFR OTHER RACES > 60 ML/MIN (>=60 (CALC)); POTASSIUM 4.8 mmol/l (3.5-5.1); SODIUM 129 mmol/l (137-146); TOTAL PROTEIN 8.3 g/dL (6.3-8.2)
[2023-02-18 06:05] LABS: ANION GAP 17 (6-22 (CALC)); BILIRUBIN, TOTAL 1.3 mg/dL (0.2-1.3); CARBON DIOXIDE 22 mmol/l (22-30); SGOT/AST 63 u/l (19-48)
--- NOTE | 2023-02-18 08:30 | NUR ---
PT WAS TAKEN TO ULTRASOUND THIS MORNING.
--- NOTE | 2023-02-18 09:00 | NUR ---
PT A/OX3 RESTING IN HIGH FOWLERS POSIITON PT HARD OF HEARING FAMILY AT BED SIDE ASSESSMENT AND VS COMPLETED. HEART RHYTHM ON TELE. RESPIRATIONS ON ROOM AIR. IV SITE NOTED. SKIN TEAR DRESSING TO LFA WITH PRESSURE DRESSING IN PLACE CDI. ALL SAFETY PRECAUTIONS IN PLACE WITH CALL LIGHT IN REACH.
--- NOTE | 2023-02-18 12:31 | NUR ---
PT RESTING IN HIGH FOWLERS POSITION PT DENIES ADDITIONAL NEEDS AT THE TIME ALL SAFETY PRECAUTIONS IN PLACE.
--- NOTE | 2023-02-18 14:50 | NUR ---
PT COMPLAINED OF SKIN TEAR BLEEDING. GRADY AND COBAN ADDED TO DRESSING. DR HAWKINS INFORMED.CONSULTED MD ISAAC AND CHRISTAL BETH.
--- NOTE | 2023-02-18 16:58 | NUR ---
TO SEE PT IN THE MORNING. FOR LFA SKIN TEAR. DRESSING REDONE WITH SURGIVCEL DRESSING APPLIED WITH GAUZE AND COBAN APPLIED. PT DENIES ADDITIONAL NEEDS AT THE TIME ALL SAFETY PRECAUTIONS IN PLACE WITH CALL LIGHT IN REACH.
--- NOTE | 2023-02-18 19:30 | NUR ---
PATIENT SITTING UP IN BED WITH FAMILY AT BEDSIDE. PATIENT IS AWAKE ALERT AND ORIENTEDX3. PATIENT WITH PRESSURE DRESSING TO LEFT FOREARM. LEFT ARM ELEVATED ON PILLOW. TELE MONITOR IN PLACE WITH THE LAST READING BEING PACED 77. SALIKNE LOCK TO RAC INTACT AND HEALTHY AT THIS TIME. SAFETY PRECAUTIONS REINFORCED. CALL LIGHT IN REACH. WILL CONT TO MONITOR.
--- NOTE | 2023-02-18 22:11 | NUR ---
PATIENT RESTING IN BED AT THIS TIME-MEDICATED WITH TYLENOL FOR GENERALIZED DISCOMFORT AND WITH [id number] FOR CONSTIPATION, PATIENT ALSO RECIEVED PRUNE JUICE FOR CONSTIPATION. SAFETY PRECAUTIONS REINFORCED. CALL LIGHT IN REACH. WILL CONT TO MONITOR.
--- NOTE | 2023-02-19 | NUR ---
PATIENT RESTING IN BED WITH EYES CLOSED AND RESPS EVEN AND UNLABORED. TELE MONITOR IN PLACE. LEFT ARM PRESSURE DRESSING REMAINS INTACT-LEFT ARM ELEVATED ON PILLOW. CALL LIGHT IN REACH. WILL CONT TO MONITOR.
[2023-02-19 04:32] VITALS: BP 111/58
[2023-02-19 06:14] LABS: BASO% 0.5 % (0-3); EOS% 1.8 % (0-8); HEMATOCRIT 35.9 % (39.0-50.0); HEMOGLOBIN 12.5 g/dl (14.0-18.0); IMMATURE GRANULOCYTES 0.2 % (0.0-5.0); LYMPH% 36.3 % (15-41); MEAN CORPUSCULAR HGB 32.4 pG CALC (26.0-32.0); MEAN CORPUSCULAR HGB CONC 34.8 g/dL CAL (32.0-36.0); MONO% 11.9 % (2-13); NEUT# 4.11 thou/uL (1.82-7.42); NEUT% 49.3 % (42-76); RED BLOOD COUNT 3.86 mill/uL (4.70-6.10); RED CELL DISTRI WIDTH 12.8 % (11.5-15.5)
[2023-02-19 06:27] LABS: ALKALINE PHOSPHATASE 69 u/l (38-126); BUN 31 mg/dL (8-23); BUN/CREATININE RATIO 27 (12-20 (CALC)); CHLORIDE 92 mmol/l (95-108); CREATININE 1.1 mg/dL (0.7-1.3); GFR FOR AFR.AMER. > 60 ML/MIN (>=60 (CALC)); GFR OTHER RACES > 60 ML/MIN (>=60 (CALC)); MAGNESIUM 2.5 mg/dL (1.6-2.3); POTASSIUM 4.4 mmol/l (3.5-5.1); SGOT/AST 36 u/l (19-48); SODIUM 130 mmol/l (137-146); TOTAL PROTEIN 7.1 g/dL (6.3-8.2)
[2023-02-19 06:28] LABS: ANION GAP 13 (6-22 (CALC)); BILIRUBIN, TOTAL 0.6 mg/dL (0.2-1.3); CARBON DIOXIDE 29 mmol/l (22-30)
[2023-02-19 07:21] VITALS: BP 109/64
--- NOTE | 2023-02-19 08:00 | NUR ---
SC IN BED WITH HOB UP, PT IS ALERT AND ORIENTED X 3. PT NPO AT THIS TIME AWAITING SURGEON CONSULT FOR LACERATION TO LEFT ARM. PT HAS TELE ON WITH ALL LEADS ATTACHED. PT LUNGS CLEAR. ABD DISTENDED AND SOFT. PT AMBUALTES WITH ONE ASSIST TO BATHROOM FOR TOILETING NEEDS. LACERATION TO LEFT ARM COVERED WITH COBAN; LEFT HAND WITH +1 PITTING EDEMA. PT HAS CALL LIGHT WITHIN REACH AND SAFETY MEASURES IN PLACE AT THIS TIME.
--- NOTE | 2023-02-19 10:50 | NUR ---
DR. MAURICIO IN FOR CONSULT. DRESSING TO LEFT ARM REMOVED. PER dR. MAURICIO PT DOES NOT NEED SURGICAL INTERVENTION AT THIS TIME. DIET ORDER HAS BEEN ENTERED, AND WATER AT BEDSIDE. PT HAS CALL LIGHT WIHTIN REACH AND ALL SAFETY MEASURES IN PLACE AT THIS TIME.
[2023-02-19 11:18] VITALS: BP 92/56
--- NOTE | 2023-02-19 11:58 | NUR ---
PT IN BED WITH HOB UP, EATING LUNCH, DAUGHTER AT BEDSIDE. PT HAS NO C/O PAIN AT THIS TIME. PT HAS CALL LIGHT WITHIN REACH AND ALL SAFETY MEASURES IN PLACE AT THIS TIME.
--- NOTE | 2023-02-19 12:00 | NUR ---
PT IN BED WITH HOB UP , C/O PAIN AT 8/10 ON PAIN SCALE TO GENITALS. TYLENOL GIVEN ORDERED. PT HAS CALL LIGHT WIHTIN REACH AND ALL SAFETY MEASURES IN PLACE AT THIS TIME.
[2023-02-19 15:17] VITALS: BP 120/71
[2023-02-19 15:18] VITALS: BP 120/71
[2023-02-19] MEDS ORDERED: OXYBUTYNIN CHLOR5 M2 PO (16:05)
[2023-02-19] MEDS ORDERED: CIPROFLOXACN500 MG PO (16:07)
[2023-02-19] MEDS ORDERED: LASIX20 MG PO (16:07)
--- NOTE | 2023-02-19 16:59 | NUR ---
Discharge instructions given. Patient verbalizes understanding of same. Discharged in stable condition via Wheelchair to Home with family. All belongings sent with pt.
[2023-02-20] MEDS ORDERED: DIGOXIN0.125 MG PO (15:50)
== END 2023-02-19 16:56 ==
LOC: ED 12:59 → ED-I 15:24 → ED 15:51 → MS2 15:52
PROVIDERS: Nurse Practitioner; Nurse Practitioner Family; Student in an Organized Health Care Education/Training Program; ADMIT Student in an Organized Health Care Education/Training Program; ATTEND Student in an Organized Health Care Education/Training Program
DX: N39.0 Urinary tract infection, site not specified (principal); B96.1 Klebsiella pneumoniae [K. pneumoniae] as the cause of diseases classified elsewhere; I11.0 Hypertensive heart disease with heart failure; I50.9 Heart failure, unspecified; J44.9 Chronic obstructive pulmonary disease, unspecified; I48.91 Unspecified atrial fibrillation; M54.2 Cervicalgia; M54.50 Low back pain, unspecified; G89.29 Other chronic pain; E78.5 Hyperlipidemia, unspecified; S51.812A Laceration without foreign body of left forearm, initial encounter; X58.XXXA Exposure to other specified factors, initial encounter; Z79.01 Long term (current) use of anticoagulants; Z95.0 Presence of cardiac pacemaker; Z20.822 Contact with and (suspected) exposure to COVID-19

== ENCOUNTER 2023-02-20 12:47 | Observation (INO) | payer MEDICARE ==
[~2023-02-20] VITALS: Ht 172.7 cm; Wt 77.2 kg
[2023-02-20] VITALS (23 sets, daily range): BP systolic 69–131; BP diastolic 41–81
[~2023-02-20 12:47] MED LIST changes: +CIPROFLOXACN500 MG PO; +CYMBALTA20 MG PO; +LASIX20 MG PO; +OXYBUTYNIN CHLOR5 M2 PO; +ZESTRIL10 M1 PO
--- NOTE | 2023-02-20 12:47 | NUR ---
PT TO ROOM 8 VIS EMS STRETCHER, CALL LIGHT IN REACH, PROVIDER NOTIFIED. URINE SAMPLE COLLECTED.
[2023-02-20 13:29] LABS: BASO% 0.3 % (0-3); EOS% 0.7 % (0-8); HEMATOCRIT 36.7 % (39.0-50.0); HEMOGLOBIN 12.1 g/dl (14.0-18.0); IMMATURE GRANULOCYTES 0.2 % (0.0-5.0); LYMPH% 22.6 % (15-41); MEAN CELL VOLUME 95.1 fL CALC (80.0-100.0); MEAN CORPUSCULAR HGB 31.3 pG CALC (26.0-32.0); MONO% 10.4 % (2-13); NEUT# 5.76 thou/uL (1.82-7.42); NEUT% 65.8 % (42-76); RED BLOOD COUNT 3.86 mill/uL (4.70-6.10); RED CELL DISTRI WIDTH 12.9 % (11.5-15.5)
--- NOTE | 2023-02-20 13:31 | NUR ---
IN ROOM TO MEDICATE PT PER EMAR, VSS, NAD NOTED, CALL LIGHT IN REACH.
[2023-02-20 13:35] LABS: URINE BILIRUBIN - DIPSTICK Negative (NEGATIVE); URINE BLOOD DIPSTICK Trace-intact (NEGATIVE); URINE GLUCOSE - DIPSTICK Negative (NEGATIVE); URINE KETONE Negative (NEGATIVE); URINE LEUK ESTERASE Negative (NEGATIVE); URINE NITRITE - DIPSTICK Negative (Negative); URINE PH 6.5 (4.5-8.0); URINE PROTEIN - DIPSTICK Negative (NEG-TRACE); URINE SPECIFIC GRAVITY 1.015; URINE UROBILINOGEN - DIPSTICK 0.2 E.U./dL (0.2)
[2023-02-20 13:37] LABS: URINE COLOR Yellow
[2023-02-20 13:52] LABS: ALBUMIN 4.2 g/dL (3.2-5.0); ALKALINE PHOSPHATASE 69 u/l (38-126); ANION GAP 16 (6-22 (CALC)); BILIRUBIN, TOTAL 0.7 mg/dL (0.2-1.3); BUN 29 mg/dL (8-23); BUN/CREATININE RATIO 25 (12-20 (CALC)); CARBON DIOXIDE 26 mmol/l (22-30); CHLORIDE 96 mmol/l (95-108); CREATININE 1.1 mg/dL (0.7-1.3); GFR FOR AFR.AMER. > 60 ML/MIN (>=60 (CALC)); GFR OTHER RACES > 60 ML/MIN (>=60 (CALC)); POTASSIUM 4.6 mmol/l (3.5-5.1); SGOT/AST 37 u/l (19-48); SODIUM 132 mmol/l (137-146); TOTAL PROTEIN 7.6 g/dL (6.3-8.2)
--- NOTE | 2023-02-20 14:30 | NUR ---
NAD NOTED, VSS, CALL LIGHT IN REACH, I/V FLUIDS FINISHED, CALL LIGHT IN REACH.
[2023-02-20] MEDS ORDERED: DIGOXIN0.125 MG PO (15:50)
--- NOTE | 2023-02-20 15:50 | NUR ---
IN ROOM, VSS, NO COMPLAINTS AT THIS TIME, CALL LIGHT IN REACH, DRSG APPLIED TO SKIN TEAR (L) ELBOW.
--- NOTE | 2023-02-20 16:30 | NUR ---
REPORT CALLED TO [facility]2 ROOM 269 NURSE FRANDY BAUMANN GOING ON TELE #1.
--- NOTE | 2023-02-20 16:40 | NUR ---
PT TRANSFERED TO MS2 ROOM 269 VIA STRETCHER, AT SIDE, YANELI RODRIGUEZ NOTED, ON TELE # 1, ALL BELONGINGS SENT WITH PT AT TIME OF TRANSFER.
--- NOTE | 2023-02-20 20:35 | NUR ---
PT RESTING IN BED, NO SIGNS OF DISTRESS NOTED, RESP EVEN AND UNLABORED. PT ALERT AND ORIENTED X3, NO EDEMA NOTED, PT HAS IV SL TO RAC FLUSHED WELL. SKIN INTACT. DISCUSSED POC, PT INFORMED OF ORTHOSTATIC BP QS, AGREES TO PLAN. VITALS FOLLOWS: SUPINE: 126/76 HR 94, SITTING 98/57 HR 91, STANDING 69/41 HR 89. PT TOLERATED WELL, DENIES ANY DIZZYNESS OR WEAKNESS. PT ASSISTED BACK TO BED, ATTEMPTED TO PLACE BED ALARM, PT REQUESTING THAT IT BE OFF, PT STATES HE WILL CALL FOR ASSISTANCE. FALL PRECAUTIONS IN PLACE, ASSESSMENT REVIEW COMPLETED, CALL LIGHT IN REACH,CONTINUE TO MONITOR.
[2023-02-21] VITALS (10 sets, daily range): BP systolic 81–125; BP diastolic 42–73
--- NOTE | 2023-02-21 | NUR ---
PT RESTING IN BED WITH EYES CLOSED, NO SIGNS OF DISTRESS NOTED, RESP EVEN AND UNLABORED. CALL LIGHT IN REACH,CONTINUE TO MONITOR.
--- NOTE | 2023-02-21 04:00 | NUR ---
PT RESTING IN BED, NO SIGNS OF DISTRESS NOTED, RESP EVEN AND UNLABORED. PT DENIES ANY NEEDS OR COMPLAINTS AT THIS TIME. CALL LIGHT IN REACH,CONTINUE TO MONITOR.
--- NOTE | 2023-02-21 07:47 | NUR ---
BEDSIDE SHIFT REPORT, PT SLEEPING IN SUPINE POSTITION, BREATHING EVEN AND NON-LABORED, TELE MONITOR IN PLACE, CALL CHOW IN REACH AND BED LOCKED IN LOWEST POSITION.
--- NOTE | 2023-02-21 07:49 | NUR ---
AWAKE ALERT AND ORIENTED AT THIS TIME, ASSISTED TO BR THEN BACK TO BED, REMINDED/INFORMED ON FALL PREVENTION, DOES USE THE CALL CHOW APPROPRIATELY.
--- NOTE | 2023-02-21 07:57 | NUR ---
EXCEPTIONAL STUDENT EDUCATION AIDE REPORTED HR IN 130'S, PT UP AMBULATING TO BR ATH THE TIME AND TO BED ON RECHECK WITH PT IN BED HR = 106, NO C/O DISCOMFORT.
--- NOTE | 2023-02-21 10:11 | NUR ---
PT UP AND AMBULATING TO BR, HR ELEVATED TO 150'S PER ED COLLISION CENTER MANAGER, THIS CONDITION EXISTS EACH TIME PT AMBULATES TO BR, WILL CONTINUE TO MONITOR.
--- NOTE | 2023-02-21 12:00 | NUR ---
RESTING IN BED AFTER MEAL, NO NEW COMPLAINS, SPOUSE IN ROOM VISITING.
[2023-02-21 12:19] LABS: HEMATOCRIT 36.7 % (39.0-50.0); HEMOGLOBIN 12.1 g/dl (14.0-18.0); MEAN CELL VOLUME 96.6 fL CALC (80.0-100.0); MEAN CORPUSCULAR HGB 31.8 pG CALC (26.0-32.0); RED BLOOD COUNT 3.8 mill/uL (4.70-6.10); RED CELL DISTRI WIDTH 12.8 % (11.5-15.5)
[2023-02-21 12:26] LABS: ALBUMIN 4.1 g/dL (3.2-5.0); ALKALINE PHOSPHATASE 64 u/l (38-126); ANION GAP 14 (6-22 (CALC)); BILIRUBIN, TOTAL 0.6 mg/dL (0.2-1.3); BUN 22 mg/dL (8-23); BUN/CREATININE RATIO 24 (12-20 (CALC)); CARBON DIOXIDE 28 mmol/l (22-30); CHLORIDE 98 mmol/l (95-108); CREATININE 0.9 mg/dL (0.7-1.3); GFR FOR AFR.AMER. > 60 ML/MIN (>=60 (CALC)); GFR OTHER RACES > 60 ML/MIN (>=60 (CALC)); POTASSIUM 4.7 mmol/l (3.5-5.1); SGOT/AST 32 u/l (19-48); SODIUM 135 mmol/l (137-146); TOTAL PROTEIN 7.2 g/dL (6.3-8.2)
--- NOTE | 2023-02-21 16:00 | NUR ---
ASSISTED TO BR AND BACK TO BED, NO NEW COMPLAINS
--- NOTE | 2023-02-21 22:56 | NUR ---
REPORT RECEEIVED AT START OF SHIFT. PT SITTING UP IN BED WITH TV ON. ALERT AND ORIENTED X 3. VERY [place]. IV FLUIDS INFUSING. BED ALARM IS ON FOR SAFETY. SAFETY PRECAUTIONS MAINTAINED. CALL LIGHT IN REACH
[2023-02-22] VITALS (8 sets, daily range): BP systolic 86–128; BP diastolic 45–76
--- NOTE | 2023-02-22 02:21 | NUR ---
PT ASSISTED TO BATHROOM HEAR RATE INCREASED TO 150'S AFIB WITH PACED BEATS. DENIED DIZZINESS OR SOB. URINATED WITHOUT DIFFICULTY. ASSISTED BACK TO BED. PT WITH UNSTEADY GAIT. HEART RATE 80'S AFIB/PACED. BED ALARM IS ON. SAFETY PRECAUTIONS MAINTAINED. CALL LIGHT IN REACH
--- NOTE | 2023-02-22 06:24 | NUR ---
PTS HEART RATE INCREASED TO 140'S WHEN STANDING UP TO URINATE. BP IS ORTHOSTATIC WHEN STANDING. 86/45. PT DENIES DIZZINESS WHEN STANDING. SAFETY PRECAUTIONS MAINTAINED. CALL LIGHT IN REACH
--- NOTE | 2023-02-22 07:05 | NUR ---
BEDSIDE SHIFT REPORT, PT AWAKE AND ORIENTED RESTING IN BED, NO C/O DISCOMFORT, TELE MONITOR IN PLACE, CALL CHOW IN REACH AND BED LOCKED IN LOWEST POSITION WITH ALARM ACTIVATED. HS RN VIKTORIA REPORTED SHE STOPPED IVF PT WAS WHEEZING.
[2023-02-22 09:29] LABS: BASO% 0.6 % (0-3); EOS% 4.1 % (0-8); HEMATOCRIT 35.7 % (39.0-50.0); HEMOGLOBIN 12.1 g/dl (14.0-18.0); IMMATURE GRANULOCYTES 0.1 % (0.0-5.0); MEAN CELL VOLUME 95.5 fL CALC (80.0-100.0); MEAN CORPUSCULAR HGB 32.4 pG CALC (26.0-32.0); MEAN CORPUSCULAR HGB CONC 33.9 g/dL CAL (32.0-36.0); MONO% 9.9 % (2-13); NEUT# 5.17 thou/uL (1.82-7.42); NEUT% 61.3 % (42-76); RED BLOOD COUNT 3.74 mill/uL (4.70-6.10); RED CELL DISTRI WIDTH 12.8 % (11.5-15.5)
[2023-02-22 09:39] LABS: ALBUMIN 3.9 g/dL (3.2-5.0); ALKALINE PHOSPHATASE 70 u/l (38-126); ANION GAP 15 (6-22 (CALC)); BILIRUBIN, TOTAL 0.6 mg/dL (0.2-1.3); BUN 19 mg/dL (8-23); BUN/CREATININE RATIO 22 (12-20 (CALC)); CARBON DIOXIDE 26 mmol/l (22-30); CHLORIDE 99 mmol/l (95-108); CREATININE 0.9 mg/dL (0.7-1.3); GFR FOR AFR.AMER. > 60 ML/MIN (>=60 (CALC)); GFR OTHER RACES > 60 ML/MIN (>=60 (CALC)); POTASSIUM 4.1 mmol/l (3.5-5.1); SGOT/AST 31 u/l (19-48); SODIUM 136 mmol/l (137-146); TOTAL PROTEIN 6.9 g/dL (6.3-8.2)
--- NOTE | 2023-02-22 12:00 | NUR ---
STABLE CONDITION, REQUESTING LAXATIVE, NOTIFIED, PRUNE JUICE ALSO GIVEN
--- NOTE | 2023-02-22 19:22 | NUR ---
REPORT RECEIVED FROM Coleman SMITH RN
[2023-02-23] VITALS (8 sets, daily range): BP systolic 86–128; BP diastolic 48–67
--- NOTE | 2023-02-23 | NUR ---
CALL FROM [employer] REGARDING PATIENTS HIGH HR. PATIENT IS CURRENTLY IN THE BATHROOM.
--- NOTE | 2023-02-23 04:30 | NUR ---
PATIENT RESTING IN BED, NO APPARENT DISTRESS NOTED. CALL LIGHT AND BEDSIDE TABLE WITHIN REACH.
[2023-02-23 08:36] LABS: BASO% 0.5 % (0-3); EOS% 3.8 % (0-8); HEMATOCRIT 40.5 % (39.0-50.0); HEMOGLOBIN 13.4 g/dl (14.0-18.0); IMMATURE GRANULOCYTES 0.1 % (0.0-5.0); LYMPH% 32.4 % (15-41); MEAN CELL VOLUME 96.7 fL CALC (80.0-100.0); MEAN CORPUSCULAR HGB CONC 33.1 g/dL CAL (32.0-36.0); NEUT# 4.4 thou/uL (1.82-7.42); NEUT% 51.2 % (42-76); RED BLOOD COUNT 4.19 mill/uL (4.70-6.10); RED CELL DISTRI WIDTH 12.7 % (11.5-15.5)
[2023-02-23 08:58] LABS: ALBUMIN 4.3 g/dL (3.2-5.0); ALKALINE PHOSPHATASE 72 u/l (38-126); ANION GAP 13 (6-22 (CALC)); BILIRUBIN, TOTAL 0.6 mg/dL (0.2-1.3); BUN 20 mg/dL (8-23); BUN/CREATININE RATIO 19 (12-20 (CALC)); CARBON DIOXIDE 30 mmol/l (22-30); CHLORIDE 97 mmol/l (95-108); CREATININE 1.1 mg/dL (0.7-1.3); GFR FOR AFR.AMER. > 60 ML/MIN (>=60 (CALC)); GFR OTHER RACES > 60 ML/MIN (>=60 (CALC)); POTASSIUM 4.5 mmol/l (3.5-5.1); SGOT/AST 35 u/l (19-48); SODIUM 136 mmol/l (137-146); TOTAL PROTEIN 8.1 g/dL (6.3-8.2)
--- NOTE | 2023-02-23 12:30 | NUR ---
AT BEDSIDE. PT RESTING EATING LUNCH. STATES NO NEEDS AT THIS TIME. FALL/SAFTEY PRECAUTIONIN PLACE. CALL LIGHT WITHIN REACH
--- NOTE | 2023-02-23 16:03 | NUR ---
PT RESTING IN BED BREATHING EVEN AND UNLABORED. NO DISTRESS NOTED. STATES NO PAIN. FALL/SAFTEY PRECAUTION IN PLACE. CALL LIGHT WITHIN REACH
--- NOTE | 2023-02-23 19:05 | NUR ---
REPORT RECEIVED FROM Stefani VILLATORO RN
[2023-02-24] VITALS (8 sets, daily range): BP systolic 101–128; BP diastolic 58–66
--- NOTE | 2023-02-24 | NUR ---
PATIENT RESTING IN BED, NO APPARENT DISTRESS NOTED. CALL LIGHT AND BEDSIDE TABLE WITHIN REACH. BED ALARM ON FOR SAFETY.
--- NOTE | 2023-02-24 05:07 | NUR ---
LAB AT BEDSIDE OBTIANING MORNING LABS.
[2023-02-24 06:25] LABS: BASO% 0.6 % (0-3); HEMATOCRIT 37.1 % (39.0-50.0); HEMOGLOBIN 12.3 g/dl (14.0-18.0); IMMATURE GRANULOCYTES 0.1 % (0.0-5.0); LYMPH% 31.2 % (15-41); MEAN CELL VOLUME 95.6 fL CALC (80.0-100.0); MEAN CORPUSCULAR HGB 31.7 pG CALC (26.0-32.0); MEAN CORPUSCULAR HGB CONC 33.2 g/dL CAL (32.0-36.0); MONO% 10.8 % (2-13); NEUT# 4.56 thou/uL (1.82-7.42); NEUT% 53.3 % (42-76); RED BLOOD COUNT 3.88 mill/uL (4.70-6.10); RED CELL DISTRI WIDTH 12.5 % (11.5-15.5)
[2023-02-24 06:55] LABS: ALBUMIN 3.7 g/dL (3.2-5.0); ALKALINE PHOSPHATASE 67 u/l (38-126); ANION GAP 13 (6-22 (CALC)); BILIRUBIN, TOTAL 0.6 mg/dL (0.2-1.3); BUN 23 mg/dL (8-23); BUN/CREATININE RATIO 26 (12-20 (CALC)); CARBON DIOXIDE 27 mmol/l (22-30); CHLORIDE 99 mmol/l (95-108); CREATININE 0.9 mg/dL (0.7-1.3); GFR FOR AFR.AMER. > 60 ML/MIN (>=60 (CALC)); GFR OTHER RACES > 60 ML/MIN (>=60 (CALC)); MAGNESIUM 2.1 mg/dL (1.6-2.3); POTASSIUM 4.4 mmol/l (3.5-5.1); SGOT/AST 29 u/l (19-48); SODIUM 134 mmol/l (137-146); TOTAL PROTEIN 6.7 g/dL (6.3-8.2)
--- NOTE | 2023-02-24 08:02 | NUR ---
BEDSIDE SHIFT REPORT, PT AWAKE AND ORIENTED RESTING IN BED, NO C/O DISCOMFORT AT THIS TIME, TELE MONITOR IN PLACE, CALL CHOW IN REACH AND BED LOCKED IN LOWEST POSTITON.
--- NOTE | 2023-02-24 16:00 | NUR ---
RESTING IN BED, STABLE
--- NOTE | 2023-02-24 19:36 | NUR ---
REPORT RECEIVED FROM Coleman SMITH RN.
[2023-02-25] VITALS (8 sets, daily range): BP systolic 85–126; BP diastolic 55–80
--- NOTE | 2023-02-25 | NUR ---
CALL FROM ED, PATIENT HR READING ASYSTOLE FOR A FEW SECONDS. NOTED TO SAY ASYTOLY BUT HR IN 70'S. LEADS REPLACED.
--- NOTE | 2023-02-25 04:58 | NUR ---
PATIENT RESTING IN BED, NO APPARENT DISTRESS NOTED. RESPIRATIONS EVEN AND UNLBAORED. RISE AND FALL OF CHEST NOTED. CALL LIGHT AND BEDSIDE TABLE WITHIN REACH.
[2023-02-25 05:23] LABS: BASO% 0.8 % (0-3); EOS% 3.9 % (0-8); HEMATOCRIT 38.1 % (39.0-50.0); HEMOGLOBIN 12.6 g/dl (14.0-18.0); IMMATURE GRANULOCYTES 0.1 % (0.0-5.0); LYMPH% 27.4 % (15-41); MEAN CELL VOLUME 95.3 fL CALC (80.0-100.0); MEAN CORPUSCULAR HGB 31.5 pG CALC (26.0-32.0); MEAN CORPUSCULAR HGB CONC 33.1 g/dL CAL (32.0-36.0); MONO% 10.2 % (2-13); NEUT# 5.13 thou/uL (1.82-7.42); NEUT% 57.6 % (42-76); RED CELL DISTRI WIDTH 12.4 % (11.5-15.5)
[2023-02-25 05:43] LABS: ALKALINE PHOSPHATASE 73 u/l (38-126); ANION GAP 12 (6-22 (CALC)); BILIRUBIN, TOTAL 0.6 mg/dL (0.2-1.3); BUN 21 mg/dL (8-23); BUN/CREATININE RATIO 24 (12-20 (CALC)); CARBON DIOXIDE 29 mmol/l (22-30); CHLORIDE 97 mmol/l (95-108); CREATININE 0.9 mg/dL (0.7-1.3); GFR FOR AFR.AMER. > 60 ML/MIN (>=60 (CALC)); GFR OTHER RACES > 60 ML/MIN (>=60 (CALC)); MAGNESIUM 2.1 mg/dL (1.6-2.3); POTASSIUM 4.5 mmol/l (3.5-5.1); SGOT/AST 29 u/l (19-48); SODIUM 133 mmol/l (137-146); TOTAL PROTEIN 7.4 g/dL (6.3-8.2)
--- NOTE | 2023-02-25 07:15 | NUR ---
REPORT RECEIVED FROM NAHED KELSEY
--- NOTE | 2023-02-25 08:50 | NUR ---
PT RESTING IN SEMI FOWLERS POSITION,A&O X3;VS OBTAINED AND ASSESSMENT COMPLETED;PT DENIES ANY CURRENT PAIN OR DISCOMFORTS,PAIN SCALE AND REPORTING EDUCATED;RESPIRATIONS EVEN AND UNLABORED ON RA;ABDOMEN SOFT ON PALPATION AND ACTIVE IN ALL 4 QUADRANTS;STRONG PEDAL PULSES;SKIN INTACT;TELE MONITORING IN PLACE;#20G TO RAC FLUSHED AND PATENT,SITE APPEARS HEALTHY;PT DENIES ANY ADDITIONAL NEEDS AND IS ENCOURAGED TO CALL FOR ASSISTANCE IF NEEDED;FALL PRECAUTIONS IN PLACE WITH BED IN THE LOWEST POSITION AND CALL LIGHT IN REACH;FREQUENT ROUNDS MADE.
--- NOTE | 2023-02-25 09:15 | NUR ---
PHYSICAL THERAPY AT BEDSIDE
--- NOTE | 2023-02-25 09:30 | NUR ---
PT MEDICATED WITH MOM PER REQUEST TO ASSIST IN BOWEL CARE.
--- NOTE | 2023-02-25 10:41 | NUR ---
ORTHOSTATICS PERFORMED BY PHYSICAL THERAPY WITH THIS WRITTER WITNESS.SUPINE 126/80, SITTING 100/55, STANDING 85/60. CANDI KOHLER NOTIFIED, NO NEW ORDERS RECEIVED AT THIS TIME.
--- NOTE | 2023-02-25 11:55 | NUR ---
PT RESTING IN RECLINER EATING LUNCH;RESPIRATIONS EVEN AND UNLABORED ON RA;PT DENIES ANY CURRENT PAIN OR DISCOMFORTS;TELE MONITORING IN PLACE;IV SITE PATENT;PT EDUCATED ON PLANS TO D/C TO REHAB TODAY AT 1430 AND VERBALIZES UNDERSTANDING;PT DENIES ANY ADDITIONAL QUESTIONS OR NEEDS;ENCOURAGED TO CALL FOR ASSISTANCE IF NEEDED;FALL PRECAUTIONS REMAIN IN PLACE WITH CALL LIGHT IN REACH;FREQUENT ROUNDS MADE.
--- NOTE | 2023-02-25 14:04 | NUR ---
PT RESTING IN SEMI FOWLERS POSITION WITH SPOUSE AT BEDSIDE;RESPIRATIONS EVEN AND UNLABORED ON RA;PT DISLODGE IV WHICH WAS REMOVED WITH CATHETER INTACT;PT TO BE DISCHARGED AT 1430 AND GO TO REHAB VIA TRANSPORT;ALL BELONGINGS TO LEAVE WITH PATENT;PT AND SPOUSE DENY ANY ADDITIONAL QUESTIONS OR NEEDS;FREQUENT ROUNDS MADE.
--- NOTE | 2023-02-25 14:56 | NUR ---
PT TRANSPORTED TO [facility] AND SPOUSE IN STABLE CONDITION.ALL BELONGINGS LEFT WITH PT AT THIS TIME.
--- NOTE | 2023-02-25 15:20 | NUR ---
MULTIPLE ATTEMPTS MADE BY THIS WRITTER TO CALL REPORT TO [facility]. LINE MAINTENANCE SUPERVISOR ANSWERED ON 2 SEPARATE OCCASIONS AND TRANSFERRED THE CALL TO NURSES STATION. NURSES STATION NEVER ANSWERED THE PHONE AND WOULD GO TO [employer]IC[employer].JUN, CASE MANAGEMENT NOTIFIED.
== END 2023-02-25 14:56 ==
LOC: ED 12:47 → ED-I 15:17 → ED 15:33 → MS2 15:34
PROVIDERS: Family Medicine; Nurse Practitioner Family; ADMIT Student in an Organized Health Care Education/Training Program; ATTEND Student in an Organized Health Care Education/Training Program
DX: I95.1 Orthostatic hypotension (principal); N39.0 Urinary tract infection, site not specified; I11.0 Hypertensive heart disease with heart failure; I50.9 Heart failure, unspecified; I48.91 Unspecified atrial fibrillation; J44.9 Chronic obstructive pulmonary disease, unspecified; M10.9 Gout, unspecified; E78.5 Hyperlipidemia, unspecified; S51.012A Laceration without foreign body of left elbow, initial encounter; W18.30XA Fall on same level, unspecified, initial encounter; Y92.009 Unspecified place in unspecified non-institutional (private) residence as the place of occurrence of the external cause; Z95.0 Presence of cardiac pacemaker; Z87.891 Personal history of nicotine dependence; Z20.822 Contact with and (suspected) exposure to COVID-19

== ENCOUNTER 2023-03-05 13:34 | Observation (INO) | payer MEDICARE ==
[2023-03-05] VITALS (44 sets, daily range): BP systolic 73–125; BP diastolic 31–68
[~2023-03-05] VITALS: Ht 172.7 cm; Wt 77.6 kg
[2023-03-05 14:08] LABS: BASO% 0.6 % (0-3); EOS% 1.4 % (0-8); HEMATOCRIT 38.5 % (39.0-50.0); HEMOGLOBIN 12.7 g/dl (14.0-18.0); IMMATURE GRANULOCYTES 0.1 % (0.0-5.0); LYMPH% 29.7 % (15-41); MEAN CELL VOLUME 94.8 fL CALC (80.0-100.0); MEAN CORPUSCULAR HGB 31.3 pG CALC (26.0-32.0); MONO% 20.5 % (2-13); NEUT# 3.79 thou/uL (1.82-7.42); NEUT% 47.7 % (42-76); RED BLOOD COUNT 4.06 mill/uL (4.70-6.10); RED CELL DISTRI WIDTH 12.6 % (11.5-15.5)
[2023-03-05 14:25] LABS: ALBUMIN 4.2 g/dL (3.2-5.0); ALKALINE PHOSPHATASE 73 u/l (38-126); ANION GAP 14 (6-22 (CALC)); BILIRUBIN, TOTAL 0.5 mg/dL (0.2-1.3); BUN 25 mg/dL (8-23); BUN/CREATININE RATIO 16 (12-20 (CALC)); CARBON DIOXIDE 28 mmol/l (22-30); CHLORIDE 95 mmol/l (95-108); CREATININE 1.6 mg/dL (0.7-1.3); GFR FOR AFR.AMER. 50 ML/MIN (>=60 (CALC)); GFR OTHER RACES 42 ML/MIN (>=60 (CALC)); POTASSIUM 4.8 mmol/l (3.5-5.1); SGOT/AST 37 u/l (19-48); SODIUM 132 mmol/l (137-146); TOTAL PROTEIN 7.5 g/dL (6.3-8.2)
[2023-03-05 15:03] LABS: URINE BILIRUBIN - DIPSTICK Negative (NEGATIVE); URINE BLOOD DIPSTICK Negative (NEGATIVE); URINE GLUCOSE - DIPSTICK Negative (NEGATIVE); URINE KETONE Negative (NEGATIVE); URINE LEUK ESTERASE Negative (NEGATIVE); URINE NITRITE - DIPSTICK Negative (Negative); URINE PROTEIN - DIPSTICK Negative (NEG-TRACE); URINE SPECIFIC GRAVITY 1.015; URINE UROBILINOGEN - DIPSTICK 0.2 E.U./dL (0.2)
[2023-03-05 15:05] LABS: URINE COLOR Yellow
[2023-03-05] MEDS ORDERED: OMEPRAZOLE DR40 MG (16:31)
[2023-03-05] MEDS ORDERED: ACETAMINOPHEN325 MG PO (16:33)
[2023-03-05] MEDS ORDERED: MILK OF MAGNES7.75 % PO (16:33)
[2023-03-06 04:11] VITALS: BP 131/70
[2023-03-06 06:32] VITALS: BP 121/69
[2023-03-06 08:36] LABS: BASO% 0.6 % (0-3); EOS% 1.1 % (0-8); HEMATOCRIT 37.6 % (39.0-50.0); HEMOGLOBIN 12.3 g/dl (14.0-18.0); IMMATURE GRANULOCYTES 0.2 % (0.0-5.0); LYMPH% 33.3 % (15-41); MEAN CELL VOLUME 95.2 fL CALC (80.0-100.0); MEAN CORPUSCULAR HGB 31.1 pG CALC (26.0-32.0); MEAN CORPUSCULAR HGB CONC 32.7 g/dL CAL (32.0-36.0); MONO% 19.3 % (2-13); NEUT# 2.37 thou/uL (1.82-7.42); NEUT% 45.5 % (42-76); RED BLOOD COUNT 3.95 mill/uL (4.70-6.10); RED CELL DISTRI WIDTH 12.7 % (11.5-15.5)
[2023-03-06 08:46] LABS: ALBUMIN 3.9 g/dL (3.2-5.0); ALKALINE PHOSPHATASE 76 u/l (38-126); ANION GAP 12 (6-22 (CALC)); BILIRUBIN, TOTAL 0.5 mg/dL (0.2-1.3); BUN 20 mg/dL (8-23); BUN/CREATININE RATIO 20 (12-20 (CALC)); CARBON DIOXIDE 27 mmol/l (22-30); CHLORIDE 102 mmol/l (95-108); GFR FOR AFR.AMER. > 60 ML/MIN (>=60 (CALC)); GFR OTHER RACES > 60 ML/MIN (>=60 (CALC)); POTASSIUM 4.9 mmol/l (3.5-5.1); SGOT/AST 42 u/l (19-48); SODIUM 136 mmol/l (137-146); TOTAL PROTEIN 7.2 g/dL (6.3-8.2)
[2023-03-06 10:15] VITALS: BP 113/58
== END 2023-03-06 14:24 | disposition home health service (06) ==
LOC: ED 13:34 → ED-I 14:01 → ED 15:35 → MS2 15:36
PROVIDERS: Family Medicine; ADMIT Student in an Organized Health Care Education/Training Program; ATTEND Student in an Organized Health Care Education/Training Program
DX: I95.1 Orthostatic hypotension (principal); E86.0 Dehydration; I11.0 Hypertensive heart disease with heart failure; I50.9 Heart failure, unspecified; J44.9 Chronic obstructive pulmonary disease, unspecified; I48.91 Unspecified atrial fibrillation; R13.10 Dysphagia, unspecified; M10.9 Gout, unspecified; E78.5 Hyperlipidemia, unspecified; Z79.01 Long term (current) use of anticoagulants; Z95.0 Presence of cardiac pacemaker; Z20.822 Contact with and (suspected) exposure to COVID-19; Z91.81 History of falling; N17.9 Acute kidney failure, unspecified
CPT/HCPCS: J1650

== ENCOUNTER 2023-08-05 19:28 | Emergency (ER) | payer MEDICARE ==
[~2023-08-05] VITALS: Ht 172.7 cm; Wt 79.4 kg
[~2023-08-05 19:28] MED LIST changes: +ACETAMINOPHEN325 MG PO; +LISINOPRIL5 MG PO; +MILK OF MAGNES7.75 % PO; +OMEPRAZOLE DR40 MG
[2023-08-05] MEDS ORDERED: ASPIRIN 81 MG/TAB PO ONE (20:30)
[2023-08-05] MEDS ORDERED: LIDOCAINE VISCOUS 2% 15 ML UDC PO ONE (20:30)
[2023-08-05] MEDS ORDERED: ALUM & MAG HYDROX-SIMETHICONE 30 ML PO ONE (20:30)
[2023-08-05] MEDS ORDERED: ACETAMINOPHEN 500 MG TAB PO ONE (20:30)
[2023-08-05] MEDS ORDERED: KETOROLAC TROMETHAMINE 30 MG/ML SDV IV ONE (20:30)
[2023-08-05 20:51] LABS: BASO% 0.4 % (0-3); EOS% 1.9 % (0-8); HEMATOCRIT 39.5 % (39.0-50.0); IMMATURE GRANULOCYTES 0.1 % (0.0-5.0); LYMPH% 31.5 % (15-41); MEAN CORPUSCULAR HGB CONC 32.9 g/dL CAL (32.0-36.0); MONO% 11.4 % (2-13); NEUT# 4.37 thou/uL (1.82-7.42); NEUT% 54.7 % (42-76); RED BLOOD COUNT 4.2 mill/uL (4.70-6.10); RED CELL DISTRI WIDTH 12.4 % (11.5-15.5)
[2023-08-05 21:06] LABS: ALBUMIN 4.5 g/dL (3.2-5.0); ALKALINE PHOSPHATASE 77 u/l (38-126); ANION GAP 13 (6-22 (CALC)); BILIRUBIN, TOTAL 0.6 mg/dL (0.2-1.3); BUN 12 mg/dL (8-23); BUN/CREATININE RATIO 15 (12-20 (CALC)); CARBON DIOXIDE 29 mmol/l (22-30); CHLORIDE 96 mmol/l (95-108); CREATININE 0.8 mg/dL (0.7-1.3); GFR FOR AFR.AMER. > 60 ML/MIN (>=60 (CALC)); GFR OTHER RACES > 60 ML/MIN (>=60 (CALC)); LIPASE 78 u/l (23-300); POTASSIUM 4.3 mmol/l (3.5-5.1); SGOT/AST 32 u/l (19-48); SODIUM 133 mmol/l (137-146); TOTAL PROTEIN 7.7 g/dL (6.3-8.2)
[2023-08-05 21:12] VITALS: BP 182/109
[2023-08-05 21:21] VITALS: BP 166/116
[2023-08-05 21:48] VITALS: BP 178/108
[2023-08-05] MEDS ORDERED: LISINOPRIL 10 MG/TAB PO ONE (21:55)
[2023-08-05] MEDS ORDERED: ZESTRIL10 M1 PO (22:04)
[2023-08-05 22:25] VITALS: BP 129/95
== END 2023-08-05 22:25 | disposition home or self-care (01) ==
LOC: ED 19:28
PROVIDERS: Family Medicine
DX: R07.89 Other chest pain (principal); I10 Essential (primary) hypertension; I48.91 Unspecified atrial fibrillation; J44.9 Chronic obstructive pulmonary disease, unspecified; Z95.0 Presence of cardiac pacemaker

== ENCOUNTER 2024-06-16 16:35 | Inpatient (IN) | payer MEDICARE ==
[~2024-06-16] VITALS: Ht 167.6 cm; Wt 76.0 kg
[2024-06-16] VITALS (19 sets, daily range): BP systolic 97–126; BP diastolic 62–87
[2024-06-16] MEDS ORDERED: ASPIRIN 81 MG/TAB PO ONE (16:40)
[2024-06-16] MEDS ORDERED: cefTRIAXone SODIUM 2 GM in SODIUM CHLORIDE 0.9% 100 ML IV ONE (17:15)
[2024-06-16] MEDS ORDERED: AZITHROMYCIN 500 MG in SODIUM CHLORIDE 0.9% 500 ML IV ONE (17:15)
[2024-06-16] MEDS ORDERED: SODIUM CHLORIDE 0.9% 250 ML IV PRN (17:15)
[2024-06-16] MEDS ORDERED: methylPREDNISolone SODIUM SUCC 125 MG/2 ML SDV IV ONE (17:15)
[2024-06-16] MEDS ORDERED: dilTIAZem HCL 50 MG/10 ML SDV IV ONE (17:15)
[2024-06-16] MEDS ORDERED: IPRATROPIUM-Albuterol 0.5MG-2.5MG/3 ML IN ONE (17:15)
[2024-06-16] MEDS ORDERED: IPRATROPIUM-Albuterol 0.5MG-2.5MG/3 ML NEB ONE (17:15)
[2024-06-16] MEDS ORDERED: DILTIAZEM HCL 125 MG in SODIUM CHLORIDE 0.9% 100 ML IV ONE (17:15)
[2024-06-16 17:22] LABS: BASO% 0.3 % (0-3); EOS% 0.6 % (0-8); HEMATOCRIT 37.7 % (39.0-50.0); HEMOGLOBIN 12.2 g/dl (14.0-18.0); IMMATURE GRANULOCYTES 0.2 % (0.0-5.0); LYMPH% 7.9 % (15-41); MEAN CELL VOLUME 97.9 fL CALC (80.0-100.0); MEAN CORPUSCULAR HGB 31.7 pG CALC (26.0-32.0); MEAN CORPUSCULAR HGB CONC 32.4 g/dL CAL (32.0-36.0); MONO% 15.2 % (2-13); NEUT# 7.79 thou/uL (1.82-7.42); NEUT% 75.8 % (42-76); RED BLOOD COUNT 3.85 mill/uL (4.70-6.10); RED CELL DISTRI WIDTH 13.7 % (11.5-15.5)
[2024-06-16 17:37] LABS: ALBUMIN 4.6 g/dL (3.2-5.0); ALKALINE PHOSPHATASE 82 u/l (38-126); ANION GAP 13 (6-22 (CALC)); BILIRUBIN, TOTAL 0.7 mg/dL (0.2-1.3); BUN 19 mg/dL (8-23); BUN/CREATININE RATIO 20 (12-20 (CALC)); CARBON DIOXIDE 33 mmol/l (22-30); CHLORIDE 94 mmol/l (95-108); CREATININE 0.9 mg/dL (0.7-1.3); ESTIMATED GFR 85 ML/MIN (>=90 (CALC)); POTASSIUM 4.6 mmol/l (3.5-5.1); SGOT/AST 38 u/l (19-48); SODIUM 136 mmol/l (137-146); TOTAL PROTEIN 8.1 g/dL (6.3-8.2)
[2024-06-16] MEDS ORDERED: FUROSEMIDE 40 MG/4 ML SDV IV ONE ×2 (18:20)
[2024-06-16] MEDS ORDERED: ACETAMINOPHEN 325 MG/TAB PO PRN (19:05)
[2024-06-16] MEDS ORDERED: MAGNESIUM HYDROXIDE 30 ML UDC PO PRN (19:05)
[2024-06-16] MEDS ORDERED: METOPROLOL SUCCINATE 100 MG/TAB PO SCH (19:06)
[2024-06-16] MEDS ORDERED: IPRATROPIUM-Albuterol 0.5MG-2.5MG/3 ML NEB PRN (19:10)
[2024-06-16] MEDS ORDERED: ALBUTEROL108 MCG/AC (19:13)
[2024-06-16] MEDS ORDERED: LOVASTATIN40 M1 PO (19:14)
[2024-06-16] MEDS ORDERED: METOPROLOL SUCC50 MG PO (19:14)
[2024-06-16] MEDS ORDERED: ALLOPURINOL100 MG PO (19:15)
[2024-06-16] MEDS ORDERED: AMIODARONE HYD200 MG (19:15)
[2024-06-16] MEDS ORDERED: CEPHALEXIN500 MG PO (19:15)
[2024-06-16] MEDS ORDERED: PANTOPRAZOLE SO40 M1 PO (19:16)
[2024-06-16] MEDS ORDERED: MIDODRINE HYDROC5 MG PO (19:16)
[2024-06-16] MEDS ORDERED: ASPIRINCHW 81MG PO (19:22)
[2024-06-16] MEDS ORDERED: [UNRECOGNIZED DRUG - OTHER] (19:23)
[2024-06-16] MEDS ORDERED: B121000 MC1 (19:24)
[2024-06-16] MEDS ORDERED: VITAMIN E400 UNIT PO (19:24)
[2024-06-16] MEDS ORDERED: D31000 UNIT PO (19:24)
[2024-06-16] MEDS ORDERED: APIXABAN BASE 5 MG TAB PO SCH (21:00)
[2024-06-16] MEDS ORDERED: methylPREDNISolone Sod Succ 40 MG/ML SDV IV SCH (21:00)
[2024-06-17] VITALS (90 sets, daily range): BP systolic 94–156; BP diastolic 49–105
[2024-06-17 05:10] LABS: BASO% 0.3 % (0-3); HEMATOCRIT 35.3 % (39.0-50.0); HEMOGLOBIN 11.7 g/dl (14.0-18.0); IMMATURE GRANULOCYTES 0.1 % (0.0-5.0); LYMPH% 5.9 % (15-41); MEAN CELL VOLUME 97.8 fL CALC (80.0-100.0); MEAN CORPUSCULAR HGB 32.4 pG CALC (26.0-32.0); MEAN CORPUSCULAR HGB CONC 33.1 g/dL CAL (32.0-36.0); MONO% 3.4 % (2-13); NEUT# 6.11 thou/uL (1.82-7.42); NEUT% 90.3 % (42-76); RED BLOOD COUNT 3.61 mill/uL (4.70-6.10); RED CELL DISTRI WIDTH 13.6 % (11.5-15.5)
[2024-06-17 05:29] LABS: ALBUMIN 4.2 g/dL (3.2-5.0); BILIRUBIN, TOTAL 0.7 mg/dL (0.2-1.3); CREATININE 0.7 mg/dL (0.7-1.3); POTASSIUM 4.9 mmol/l (3.5-5.1); TOTAL PROTEIN 7.3 g/dL (6.3-8.2)
[2024-06-17 05:37] LABS: MAGNESIUM 2.5 mg/dL (1.6-2.3)
[2024-06-17] MEDS ORDERED: FUROSEMIDE 40 MG/4 ML SDV IV SCH (08:00)
[2024-06-17] MEDS ORDERED: ASPIRIN 81 MG/TAB PO SCH (09:00)
[2024-06-17] MEDS ORDERED: PANTOPRAZOLE SODIUM Sesquihydr 40 MG/TAB PO SCH (09:00)
[2024-06-17] MEDS ORDERED: LORazepam 0.5 MG/TAB PO PRN (18:00)
[2024-06-17] MEDS ORDERED: AZITHROMYCIN 500 MG in SODIUM CHLORIDE 0.9% 500 ML IV SCH (18:00)
[2024-06-17] MEDS ORDERED: ATORVASTATIN CALCIUM 40 MG/TAB PO SCH (21:00)
[2024-06-18] VITALS (20 sets, daily range): BP systolic 114–154; BP diastolic 77–107
[2024-06-18 04:42] LABS: BASO% 0.1 % (0-3); HEMATOCRIT 35.6 % (39.0-50.0); HEMOGLOBIN 11.8 g/dl (14.0-18.0); IMMATURE GRANULOCYTES 0.3 % (0.0-5.0); LYMPH% 5.9 % (15-41); MEAN CELL VOLUME 98.9 fL CALC (80.0-100.0); MEAN CORPUSCULAR HGB 32.8 pG CALC (26.0-32.0); MEAN CORPUSCULAR HGB CONC 33.1 g/dL CAL (32.0-36.0); MONO% 9.5 % (2-13); NEUT# 6.73 thou/uL (1.82-7.42); NEUT% 84.2 % (42-76); RED BLOOD COUNT 3.6 mill/uL (4.70-6.10); RED CELL DISTRI WIDTH 13.5 % (11.5-15.5)
[2024-06-18 05:15] LABS: BILIRUBIN, TOTAL 0.5 mg/dL (0.2-1.3); CREATININE 0.8 mg/dL (0.7-1.3); MAGNESIUM 2.3 mg/dL (1.6-2.3); POTASSIUM 4.9 mmol/l (3.5-5.1); TOTAL PROTEIN 6.9 g/dL (6.3-8.2)
[2024-06-18] MEDS ORDERED: METOPROLOL TARTRATE 5 MG/5 ML VIAL IV SCH (06:45)
[2024-06-18] MEDS ORDERED: LEVALBUTEROL HCL 1.25 MG/3 ML VIAL NEB PRN (07:45)
[2024-06-18] MEDS ORDERED: METOPROLOL TARTRATE 5 MG/5 ML VIAL IV PRN (07:50)
[2024-06-18] MEDS ORDERED: AMIODARONE 200 MG/TAB PO SCH (09:00)
[2024-06-18] MEDS ORDERED: METOPROLOL SUCCINATE 100 MG/TAB PO SCH (09:00)
[2024-06-18] MEDS ORDERED: BENZONATATE 200 MG/CAP PO SCH (10:00)
[2024-06-18] MEDS ORDERED: BENZONATATE 200 MG/CAP PO PRN (13:35)
[2024-06-18] MEDS ORDERED: LORazepam 2 MG/ML IV SCH (20:35)
[2024-06-19] VITALS (23 sets, daily range): BP systolic 114–146; BP diastolic 75–99
[2024-06-19 05:03] LABS: HEMOGLOBIN 11.6 g/dl (14.0-18.0); IMMATURE GRANULOCYTES 0.2 % (0.0-5.0); LYMPH% 4.7 % (15-41); MEAN CELL VOLUME 100.6 fL CALC (80.0-100.0); MEAN CORPUSCULAR HGB 32.4 pG CALC (26.0-32.0); MEAN CORPUSCULAR HGB CONC 32.2 g/dL CAL (32.0-36.0); MONO% 11.5 % (2-13); NEUT# 8.9 thou/uL (1.82-7.42); NEUT% 83.6 % (42-76); RED BLOOD COUNT 3.58 mill/uL (4.70-6.10); RED CELL DISTRI WIDTH 13.7 % (11.5-15.5)
[2024-06-19 05:35] LABS: ALBUMIN 3.8 g/dL (3.2-5.0); BILIRUBIN, TOTAL 0.5 mg/dL (0.2-1.3); MAGNESIUM 2.2 mg/dL (1.6-2.3); POTASSIUM 4.5 mmol/l (3.5-5.1); TOTAL PROTEIN 6.7 g/dL (6.3-8.2)
[2024-06-19 05:40] LABS: CREATININE 0.7 mg/dL (0.7-1.3)
[2024-06-19] MEDS ORDERED: LORazepam 1 MG/TAB PO PRN (08:35)
[2024-06-19] MEDS ORDERED: FUROSEMIDE 40 MG/4 ML SDV IV SCH (11:00)
[2024-06-19] MEDS ORDERED: AZITHROMYCIN 500 MG in DEXTROSE 5% 250 ML IV SCH (18:00)
[2024-06-20] VITALS (23 sets, daily range): BP systolic 101–141; BP diastolic 55–90
[2024-06-20 05:27] LABS: HEMATOCRIT 39.6 % (39.0-50.0); HEMOGLOBIN 12.5 g/dl (14.0-18.0); IMMATURE GRANULOCYTES 0.3 % (0.0-5.0); LYMPH% 5.1 % (15-41); MEAN CELL VOLUME 102.1 fL CALC (80.0-100.0); MEAN CORPUSCULAR HGB 32.2 pG CALC (26.0-32.0); MEAN CORPUSCULAR HGB CONC 31.6 g/dL CAL (32.0-36.0); MONO% 12.3 % (2-13); NEUT# 7.73 thou/uL (1.82-7.42); NEUT% 82.3 % (42-76); RED BLOOD COUNT 3.88 mill/uL (4.70-6.10); RED CELL DISTRI WIDTH 13.3 % (11.5-15.5)
[2024-06-20 05:32] LABS: ALBUMIN 3.8 g/dL (3.2-5.0); BILIRUBIN, TOTAL 0.6 mg/dL (0.2-1.3); MAGNESIUM 2.1 mg/dL (1.6-2.3); POTASSIUM 4.7 mmol/l (3.5-5.1)
[2024-06-20] MEDS ORDERED: AMIODARONE 200 MG/TAB PO SCH (21:00)
[2024-06-21] VITALS (24 sets, daily range): BP systolic 93–145; BP diastolic 45–102
[2024-06-21 05:49] LABS: HEMATOCRIT 40.8 % (39.0-50.0); HEMOGLOBIN 12.6 g/dl (14.0-18.0); IMMATURE GRANULOCYTES 0.7 % (0.0-5.0); LYMPH% 5.4 % (15-41); MEAN CORPUSCULAR HGB 31.8 pG CALC (26.0-32.0); MEAN CORPUSCULAR HGB CONC 30.9 g/dL CAL (32.0-36.0); MONO% 9.1 % (2-13); NEUT# 9.17 thou/uL (1.82-7.42); NEUT% 84.8 % (42-76); RED BLOOD COUNT 3.96 mill/uL (4.70-6.10); RED CELL DISTRI WIDTH 13.3 % (11.5-15.5)
[2024-06-21 05:51] LABS: CREATININE 0.9 mg/dL (0.7-1.3); MAGNESIUM 2.1 mg/dL (1.6-2.3)
[2024-06-21] MEDS ORDERED: acetaZOLAMIDE 125 MG TAB PO SCH ×2 (15:00→21:00)
[2024-06-21] MEDS ORDERED: AZITHROMYCIN 500 MG in SODIUM CHLORIDE 0.9% 250 ML IV SCH (18:00)
[2024-06-21] MEDS ORDERED: dilTIAZem HCL 50 MG/10 ML SDV IV PRN (23:50)
[2024-06-21] MEDS ORDERED: DILTIAZEM HCL 125 MG in SODIUM CHLORIDE 0.9% 100 ML IV PRN (23:50)
[2024-06-22] VITALS (375 sets, daily range): BP systolic 51–142; BP diastolic 30–89
[2024-06-22 05:41] LABS: HEMATOCRIT 42.9 % (39.0-50.0); MEAN CELL VOLUME 105.1 fL CALC (80.0-100.0); MEAN CORPUSCULAR HGB 31.9 pG CALC (26.0-32.0); MEAN CORPUSCULAR HGB CONC 30.3 g/dL CAL (32.0-36.0); RED BLOOD COUNT 4.08 mill/uL (4.70-6.10)
[2024-06-22 05:47] LABS: ALBUMIN 3.6 g/dL (3.2-5.0); BILIRUBIN, TOTAL 0.8 mg/dL (0.2-1.3); CREATININE 1.1 mg/dL (0.7-1.3)
[2024-06-22 06:04] LABS: POTASSIUM 3.8 mmol/l (3.5-5.1)
[2024-06-22] MEDS ORDERED: PROPOFOL 100 ML IV ONE ×2 (10:12→15:51)
[2024-06-22] MEDS ORDERED: BUMETANIDE 10 MG in SODIUM CHLORIDE 0.9% 60 ML IV SCH (10:30)
[2024-06-22] MEDS ORDERED: NOREPINEPHRINE BITARTRATE 4 MG in DEXTROSE 5% 250 ML IV PRN (11:50)
[2024-06-22] MEDS ORDERED: SODIUM CHLORIDE 0.9% 500 ML IV PRN (11:55)
[2024-06-22] MEDS ORDERED: DEXTROSE 5% IV PRN ×2 (15:25→20:40)
[2024-06-22] MEDS ORDERED: NOREPINEPHRINE BITARTRATE IV PRN (15:25)
[2024-06-22] MEDS ORDERED: PHENYLEPHRINE HCL 10 MG in DEXTROSE 5% 250 ML IV PRN (15:40)
[2024-06-22] MEDS ORDERED: SODIUM CHLORIDE 0.9% IV PRN (15:45)
[2024-06-22] MEDS ORDERED: VASOPRESSIN IV PRN (15:45)
[2024-06-22] MEDS ORDERED: PHENYLEPHRINE HCL 10 MG/ML VIAL ONE (19:21)
[2024-06-22] MEDS ORDERED: PROPOFOL 100 ML IV PRN (19:25)
[2024-06-22] MEDS ORDERED: amioDARONE HCl 450 MG in SODIUM CHLORIDE 250 ML IV PRN (19:45)
[2024-06-22] MEDS ORDERED: PHENYLEPHRINE HCL IV PRN (20:40)
[2024-06-22] MEDS ORDERED: DEXTROSE 5% 100 ML IV ONE (20:50)
[2024-06-22] MEDS ORDERED: SODIUM CHLORIDE 0.9% 1,000 ML IV SCH (21:00)
[2024-06-22] MEDS ORDERED: SODIUM CHLORIDE 0.9% 1,000 ML IV ONE (21:05)
[2024-06-23] VITALS (158 sets, daily range): BP systolic 74–135; BP diastolic 50–83
[2024-06-23] MEDS ORDERED: DEXTROSE 5% 1,000 ML IV ONE (01:29)
[2024-06-23] MEDS ORDERED: PHENYLEPHRINE HCL 10 MG/ML VIAL ONE (01:46)
[2024-06-23 05:26] LABS: HEMOGLOBIN 11.1 g/dl (14.0-18.0); MEAN CORPUSCULAR HGB 31.7 pG CALC (26.0-32.0); MEAN CORPUSCULAR HGB CONC 32.2 g/dL CAL (32.0-36.0); RED BLOOD COUNT 3.5 mill/uL (4.70-6.10)
[2024-06-23 05:34] LABS: BILIRUBIN, TOTAL 0.9 mg/dL (0.2-1.3); CREATININE 1.3 mg/dL (0.7-1.3); TOTAL PROTEIN 5.6 g/dL (6.3-8.2)
[2024-06-23 05:44] LABS: ALBUMIN 2.8 g/dL (3.2-5.0); POTASSIUM 2.2 mmol/l (3.5-5.1)
[2024-06-23 05:47] LABS: HEMATOCRIT 34.5 % (39.0-50.0); MEAN CELL VOLUME 98.6 fL CALC (80.0-100.0)
[2024-06-23] MEDS ORDERED: POTASSIUM CHLORIDE 20MEQ 100 ML IV SCH ×2 (06:00→20:25)
[2024-06-23] MEDS ORDERED: CEFEPIME HYDROCHLORIDE 2 GM in SODIUM CHLORIDE 0.9% 100 ML IV SCH (10:30)
[2024-06-23] MEDS ORDERED: VANCOMYCIN HCL 1,250 MG in SODIUM CHLORIDE 0.9% 225 ML IV SCH (11:00)
[2024-06-23 18:24] LABS: URINE BILIRUBIN - DIPSTICK Negative (NEGATIVE); URINE BLOOD DIPSTICK Small (NEGATIVE); URINE CLARITY Clear; URINE GLUCOSE - DIPSTICK Negative (NEGATIVE); URINE KETONE Negative (NEGATIVE); URINE LEUK ESTERASE Negative (Negative); URINE NITRITE - DIPSTICK Negative (Negative); URINE PROTEIN - DIPSTICK Negative (NEG-TRACE); URINE SPECIFIC GRAVITY <=1.005; URINE UROBILINOGEN - DIPSTICK 0.2 E.U./dL (0.2)
[2024-06-23 18:26] LABS: URINE COLOR Yellow
[2024-06-23 18:34] LABS: URINE RBC 0-2 RBC/hpf (0-5)
[2024-06-23 18:35] LABS: URINE MUCUS FEW hpf (NONE-FEW); URINE WBC 0-2 WBC/hpf (0-5)
[2024-06-23 19:07] LABS: CREATININE 1.2 mg/dL (0.7-1.3)
[2024-06-23 19:15] LABS: POTASSIUM 2.4 mmol/l (3.5-5.1)
[2024-06-24] VITALS (49 sets, daily range): BP systolic 94–126; BP diastolic 50–79
[2024-06-24 05:29] LABS: HEMATOCRIT 30.8 % (39.0-50.0); HEMOGLOBIN 10.4 g/dl (14.0-18.0); IMMATURE GRANULOCYTES 0.6 % (0.0-5.0); LYMPH% 8.8 % (15-41); MEAN CELL VOLUME 94.2 fL CALC (80.0-100.0); MEAN CORPUSCULAR HGB 31.8 pG CALC (26.0-32.0); MEAN CORPUSCULAR HGB CONC 33.8 g/dL CAL (32.0-36.0); MONO% 3.8 % (2-13); NEUT# 6.86 thou/uL (1.82-7.42); NEUT% 86.8 % (42-76); RED BLOOD COUNT 3.27 mill/uL (4.70-6.10)
[2024-06-24 05:40] LABS: ALBUMIN 2.5 g/dL (3.2-5.0); CREATININE 1.1 mg/dL (0.7-1.3); POTASSIUM 2.7 mmol/l (3.5-5.1)
[2024-06-24 06:32] LABS: MAGNESIUM 1.2 mg/dL (1.6-2.3)
[2024-06-24] MEDS ORDERED: BUMETANIDE 1 MG/4 ML VIAL IV SCH ×2 (07:00→14:00)
[2024-06-24] MEDS ORDERED: POTASSIUM CHLORIDE 20MEQ 100 ML IV SCH ×2 (08:30→19:10)
[2024-06-24] MEDS ORDERED: Pantoprazole Sodium 40 MG VIAL (Protonix) IV SCH (09:30)
[2024-06-24] MEDS ORDERED: MAGNESIUM SULFATE HEPTAHYDRATE 100 ML IV SCH (09:30)
[2024-06-24] MEDS ORDERED: SODIUM CHLORIDE 1 GM/TAB TAB PO SCH (14:00)
[2024-06-24] MEDS ORDERED: POTASSIUM PHOSPHATE MONOBASIC PO SCH (14:00)
[2024-06-24] MEDS ORDERED: POTASSIUM CHLORIDE 20 MEQ/PKT POWDER PO SCH (14:00)
[2024-06-24] MEDS ORDERED: MAGNESIUM OXIDE 400 MG/TAB PO SCH (14:30)
[2024-06-24 17:20] LABS: POTASSIUM 2.8 mmol/l (3.5-5.1)
[2024-06-24 17:21] LABS: MAGNESIUM 2.4 mg/dL (1.6-2.3)
[2024-06-24] MEDS ORDERED: SODIUM CHLORIDE 0 ML IV ONE (23:36)
[2024-06-25 05:48] LABS: BASO% 0.1 % (0-3); EOS% 0.2 % (0-8); HEMATOCRIT 30.9 % (39.0-50.0); HEMOGLOBIN 10.4 g/dl (14.0-18.0); IMMATURE GRANULOCYTES 0.9 % (0.0-5.0); LYMPH% 8.6 % (15-41); MEAN CELL VOLUME 93.4 fL CALC (80.0-100.0); MEAN CORPUSCULAR HGB 31.4 pG CALC (26.0-32.0); MEAN CORPUSCULAR HGB CONC 33.7 g/dL CAL (32.0-36.0); MONO% 6.1 % (2-13); NEUT# 7.6 thou/uL (1.82-7.42); NEUT% 84.1 % (42-76); RED BLOOD COUNT 3.31 mill/uL (4.70-6.10); RED CELL DISTRI WIDTH 12.9 % (11.5-15.5)
[2024-06-25 05:56] LABS: ALBUMIN 2.5 g/dL (3.2-5.0); BILIRUBIN, TOTAL 0.9 mg/dL (0.2-1.3); CREATININE 1.1 mg/dL (0.7-1.3); POTASSIUM 3.2 mmol/l (3.5-5.1); TOTAL PROTEIN 5.4 g/dL (6.3-8.2)
[2024-06-25] MEDS ORDERED: Heparin SODIUM (Porcine) 5,000 UNITS/ML SDV SC SCH (09:00)
[2024-06-25] MEDS ORDERED: POTASSIUM CHLORIDE 20MEQ 100 ML IV SCH (10:00)
[2024-06-25 11:44] LABS: MAGNESIUM 2.1 mg/dL (1.6-2.3)
[2024-06-25] MEDS ORDERED: VANCOMYCIN HCL 1 GM in SODIUM CHLORIDE 0.9% 250 ML IV ONE (17:00)
[2024-06-26] VITALS (13 sets, daily range): BP systolic 74–97; BP diastolic 43–57
[2024-06-26 05:18] LABS: BASO% 0.1 % (0-3); EOS% 0.2 % (0-8); HEMATOCRIT 30.3 % (39.0-50.0); HEMOGLOBIN 10.2 g/dl (14.0-18.0); LYMPH% 7.3 % (15-41); MEAN CELL VOLUME 95.3 fL CALC (80.0-100.0); MEAN CORPUSCULAR HGB 32.1 pG CALC (26.0-32.0); MEAN CORPUSCULAR HGB CONC 33.7 g/dL CAL (32.0-36.0); MONO% 8.1 % (2-13); NEUT# 7.65 thou/uL (1.82-7.42); NEUT% 83.3 % (42-76); RED BLOOD COUNT 3.18 mill/uL (4.70-6.10)
[2024-06-26 05:38] LABS: ALBUMIN 2.4 g/dL (3.2-5.0); BILIRUBIN, TOTAL 0.8 mg/dL (0.2-1.3); CREATININE 1.2 mg/dL (0.7-1.3); POTASSIUM 3.8 mmol/l (3.5-5.1); TOTAL PROTEIN 5.2 g/dL (6.3-8.2)
[2024-06-26] MEDS ORDERED: VANCOMYCIN HCL 1 GM in SODIUM CHLORIDE 0.9% 250 ML IV SCH (17:00)
[2024-06-26] MEDS ORDERED: BUMETANIDE 1 MG/4 ML VIAL IV SCH (21:59)
[2024-06-27] VITALS (22 sets, daily range): BP systolic 84–152; BP diastolic 49–75
[2024-06-27 06:00] LABS: HEMATOCRIT 30.4 % (39.0-50.0); HEMOGLOBIN 10.1 g/dl (14.0-18.0); MEAN CELL VOLUME 95.3 fL CALC (80.0-100.0); MEAN CORPUSCULAR HGB 31.7 pG CALC (26.0-32.0); MEAN CORPUSCULAR HGB CONC 33.2 g/dL CAL (32.0-36.0); RED BLOOD COUNT 3.19 mill/uL (4.70-6.10)
[2024-06-27 06:11] LABS: ALBUMIN 2.5 g/dL (3.2-5.0); BILIRUBIN, TOTAL 0.9 mg/dL (0.2-1.3); CREATININE 1.1 mg/dL (0.7-1.3); TOTAL PROTEIN 5.5 g/dL (6.3-8.2)
[2024-06-27] MEDS ORDERED: POTASSIUM CHLORIDE 20MEQ 100 ML IV SCH (07:30)
[2024-06-27] MEDS ORDERED: MORPHINE SULFATE 4 MG/ML VIAL ONE (12:13)
[2024-06-27] MEDS ORDERED: HYOSCYAMINE SULFATE 0.125 MG TAB SL PRN (12:45)
[2024-06-27] MEDS ORDERED: MORPHINE SULFATE 4 MG/ML VIAL IV PRN (12:45)
[2024-06-27] MEDS ORDERED: ONDANSETRON HCl 4 MG/2 ML SDV IV PRN (12:45)
[2024-06-27] MEDS ORDERED: IPRATROPIUM-Albuterol 0.5MG-2.5MG/3 ML IN PRN (12:45)
[2024-06-27] MEDS ORDERED: LORazepam 2 MG/ML IV PRN (12:45)
[2024-06-27] MEDS ORDERED: ACETYLCYSTEINE 20% 200 MG/ML SDV IN SCH (13:00)
[2024-06-27] MEDS ORDERED: BUMETANIDE 1 MG/4 ML VIAL IV SCH (14:00)
[2024-06-28] VITALS (16 sets, daily range): BP systolic 91–120; BP diastolic 49–69
== END 2024-06-27 18:02 | disposition hospice, inpatient (51) | DRG 207 ==
LOC: ED 16:35 → ED-I 18:08 → ED 18:23 → ICU 18:24
PROVIDERS: Internal Medicine; Internal Medicine Nephrology; Nurse Practitioner; Nurse Practitioner Family; ADMIT Internal Medicine; ATTEND Internal Medicine
PROC: 5A09457 Assistance with Respiratory Ventilation, 24-96 Consecutive Hours, Continuous Positive Airway Pressure (ICD-10-PCS; principal; 2024-06-18)
PROC: 5A09357 Assistance with Respiratory Ventilation, Less than 24 Consecutive Hours, Continuous Positive Airway Pressure (ICD-10-PCS; 2024-06-21)
PROC: 5A1955Z Respiratory Ventilation, Greater than 96 Consecutive Hours (ICD-10-PCS; 2024-06-22)
PROC: 0BH17EZ Insertion of Endotracheal Airway into Trachea, Via Natural or Artificial Opening (ICD-10-PCS; 2024-06-22)
PROC: 02HV33Z Insertion of Infusion Device into Superior Vena Cava, Percutaneous Approach (ICD-10-PCS; 2024-06-22)
PROC: 0T9B70Z Drainage of Bladder with Drainage Device, Via Natural or Artificial Opening (ICD-10-PCS; 2024-06-22)
PROC: 5A09357 Assistance with Respiratory Ventilation, Less than 24 Consecutive Hours, Continuous Positive Airway Pressure (ICD-10-PCS; 2024-06-27)
DX: J18.9 Pneumonia, unspecified organism (principal); I50.23 Acute on chronic systolic (congestive) heart failure; K72.00 Acute and subacute hepatic failure without coma; J80 Acute respiratory distress syndrome; J44.1 Chronic obstructive pulmonary disease with (acute) exacerbation; J44.0 Chronic obstructive pulmonary disease with (acute) lower respiratory infection; I48.21 Permanent atrial fibrillation; I13.0 Hypertensive heart and chronic kidney disease with heart failure and stage 1 through stage 4 chronic kidney disease, or unspecified chronic kidney disease; E87.4 Mixed disorder of acid-base balance; E87.1 Hypo-osmolality and hyponatremia; N18.2 Chronic kidney disease, stage 2 (mild); I25.10 Atherosclerotic heart disease of native coronary artery without angina pectoris; I95.9 Hypotension, unspecified; E83.39 Other disorders of phosphorus metabolism; E83.42 Hypomagnesemia; D64.9 Anemia, unspecified; M10.9 Gout, unspecified; F41.9 Anxiety disorder, unspecified; E78.5 Hyperlipidemia, unspecified; Z51.5 Encounter for palliative care; Z66 Do not resuscitate; T46.2X6A Underdosing of other antidysrhythmic drugs, initial encounter; Z91.128 Patient's intentional underdosing of medication regimen for other reason; Z95.818 Presence of other cardiac implants and grafts; Z86.14 Personal history of Methicillin resistant Staphylococcus aureus infection; Z95.0 Presence of cardiac pacemaker; Z99.81 Dependence on supplemental oxygen; Z87.891 Personal history of nicotine dependence; Z20.822 Contact with and (suspected) exposure to COVID-19
CPT/HCPCS: J0282; J0456; J0692; J0696; J1644; J1939; J1940; J2060; J2470; J2598; J2704; J3370; J3475; J3480; J3490

== ENCOUNTER 2024-06-27 18:03 | Inpatient (IN) | payer OTHER, MEDICARE ==
[~2024-06-27] VITALS: Ht 167.6 cm; Wt 76.0 kg
[~2024-06-27 18:03] MED LIST changes: +ALBUTEROL108 MCG/AC; +ALLOPURINOL100 MG PO; +AMIODARONE HYD200 MG; +ASPIRINCHW 81MG PO; +B121000 MC1; +D31000 UNIT PO; +LOVASTATIN40 M1 PO; +METOPROLOL SUCC50 MG PO; +MIDODRINE HYDROC5 MG PO; +PANTOPRAZOLE SO40 M1 PO; +VITAMIN E400 UNIT PO; +[UNRECOGNIZED DRUG - OTHER]
[2024-06-27] MEDS ORDERED: ONDANSETRON HCl 4 MG/2 ML SDV IV PRN (19:05)
[2024-06-27] MEDS ORDERED: HYOSCYAMINE SULFATE 0.125 MG TAB SL PRN (19:05)
[2024-06-27] MEDS ORDERED: IPRATROPIUM-Albuterol 0.5MG-2.5MG/3 ML IN PRN (19:05)
[2024-06-27] MEDS ORDERED: MORPHINE SULFATE 4 MG/ML VIAL IV PRN (19:05)
[2024-06-27] MEDS ORDERED: ACETAMINOPHEN 325 MG/TAB PO PRN (19:05)
[2024-06-27] MEDS ORDERED: LORAZEPAM 2 MG/1 ML PO PRN (19:05)
[2024-06-27] MEDS ORDERED: CLARIFY DOSE PO PRN ×3 (20:05→23:20)
--- NOTE | 2024-06-27 21:17 | NUR ---
ASSESSMENT COMPLETED. PT HAD NO RESPONSE TO VERBAL OR PAINFUL STIMULI. HOSPICE/COMFORT MEASURES IN PLACE. FAMILY @ BEDSIDE, ARE AWARE AND UNDERSTAND SITUATION. PT IS ON BIPAP, SAT IS 100%. PT REPOSITIONED.
[2024-06-28] MEDS ORDERED: IPRATROPIUM-Albuterol 0.5MG-2.5MG/3 ML IN PRN (00:50)
--- NOTE | 2024-06-28 05:37 | NUR ---
NO CHANGE IN PT STATUS. MORPHINE GIVEN FOR COMFORT MEASURES PER PROVIDER ORDERS. PT REMAINS ON BIPAP. IS @ BEDSIDE.
--- NOTE | 2024-06-28 08:00 | NUR ---
REPORT RECEIVED FROM NIGHT NURSE. PATIENT SITTING UP IN BED RESTING WITH EYES CLOSED. ON BIPAP. PATIENT RESPONDS TO QUESTIONS ASKED BY NODDING AND SHAKING HEAD. AT BEDSIDE. TERAN IN PLACE AND DRAINING. CALL LIGHT IN REACH.
--- NOTE | 2024-06-28 10:32 | NUR ---
PT REMOVED FROM BIPAP PER RN AND FAMILY, PLACED ON NRM AT 15L
--- NOTE | 2024-06-28 12:00 | NUR ---
PATIENT IS ON 15L NON REBREATHER, TOLERATING WELL. AT BEDSIDE. CALL LIGHT IN REACH.
--- NOTE | 2024-06-28 16:00 | NUR ---
PATIENT STATUS REMAINS UNCHANGED. ON 15L NON REBREATHER. AT BEDSIDE. COMFORT CARE MEASURES IN PLACE. CALL LIGHT IN REACH.
--- NOTE | 2024-06-28 16:36 | NUR ---
[facility] TRANSPORTED PATIENT BY STRETCHER TO [facility].
--- NOTE | 2024-06-29 14:16 | NUR ---
CONTACTED [facility] TO SCHEDULE PICKUP OF THE P500 AIR MATTRESS ASSIGNED TO THIS PATIENT. I SPOKE WITH GUS AT 1416 HRS. CONFIRMATION #[id number].
== END 2024-06-28 16:36 | disposition hospice, inpatient (51) | DRG 951 ==
LOC: ICU 18:03
PROVIDERS: ADMIT Internal Medicine; ATTEND Internal Medicine
PROC: 5A09357 Assistance with Respiratory Ventilation, Less than 24 Consecutive Hours, Continuous Positive Airway Pressure (ICD-10-PCS; principal; 2024-06-27)
DX: Z51.5 Encounter for palliative care (principal); J96.21 Acute and chronic respiratory failure with hypoxia; J18.9 Pneumonia, unspecified organism; I13.0 Hypertensive heart and chronic kidney disease with heart failure and stage 1 through stage 4 chronic kidney disease, or unspecified chronic kidney disease; I48.21 Permanent atrial fibrillation; J44.0 Chronic obstructive pulmonary disease with (acute) lower respiratory infection; J44.1 Chronic obstructive pulmonary disease with (acute) exacerbation; N18.30 Chronic kidney disease, stage 3 unspecified; I50.9 Heart failure, unspecified; I25.10 Atherosclerotic heart disease of native coronary artery without angina pectoris; Z66 Do not resuscitate; Z95.818 Presence of other cardiac implants and grafts; Z95.0 Presence of cardiac pacemaker